=== PATIENT | female | born 1935 | race Caucasian/White ===

== ENCOUNTER 2025-04-10 21:49 | Inpatient (IN) | payer OTHER ==
[~2025-04-10] VITALS: Ht 167.6 cm; Wt 88.0 kg
--- NOTE | 2025-04-10 22:08 | ED.PDOC ---
HPI Comments 89-year-old female in the ER via EMS for chest pains. Patient has history of hypertension and dyslipidemia, for the past 3 hours, she has been experiencing left sided chest pains, heavy, nonradiating, 8/10 intensity, constant. Denies any shortness a breath. Persistence prompted check up REVIEW OF SYSTEMS: General: No fever, no chills, or fatigue HEENT: No sore throat, no earache, no congestion, no neck pain. Cardiac: (+) chest pain. No palpitations. Lungs: No shortness of breath, no cough. GI: No nausea, no vomiting, no diarrhea, no constipation, no abdominal pain : No dysuria, frequency, or urgency. No hematuria. Musculoskeletal: No joint pain , no joint swelling, no extremity edema. Skin: No rash, no itching. Neuro: No headache, no dizziness, no weakness EXAM: General: Awake, alert and oriented. No acute distress. Skin: Skin in warm, dry and intact. Appropriate color for ethnicity. HEENT: The head is normocephalic and atraumatic. Conjunctivae are clear without exudates or hemorrhage. Sclera is non-icteric. EOM are intact. No signs of nystagmus. Eyelids are normal in appearance without swelling or lesions. Oral mucosa is pink and moist Neck: The neck is supple with normal range of motion. No JVD. Cardiac: Heart rate and rhythm are normal. No murmurs, gallops, or rubs are auscultated. Respiratory: No signs of respiratory distress. Lung sounds are clear in all lobes bilaterally without rales, rhonchi, or wheezes. Abdominal: Abdomen is soft, non-tender without distention. Bowel sounds are present and normoactive in all four quadrants. Extremities: Upper and lower extremities are atraumatic in appearance without deformity or edema. Neurological: The patient is awake, alert and oriented to person, place, and time with normal speech. Speech is clear. There is no facial asymmetry. Psychiatric: Appropriate mood and affect. Good judgement and insight Chief Complaint: Chest Pain Time Seen by MD: 22:07 Primary Care Provider: UNK Reviewed Notes: [employer] Notes Allergies: Coded Allergies: NO KNOWN ALLERGIES (Unverified , 06/05/16) Home Meds Reported Medications Ketoconazole (Ketoconazole) 2 % Cre, 1 APPLIC TOP BID for UNDER BREASTS, PERIANAL AREA, #60 GRAMS 1 Refill 04/11/25 Tramadol Hcl (Tramadol Hcl) 50 Mg Tab, 50 MG PO Q6HP PRN for PAIN SCALE 7 THRU 10, MG 04/11/25 Tolterodine Tartrate (Detrol La) 2 Mg Cap, 1 CAP PO DAILY for OVERACTIVE BLADDER, #30 CAP 2 Refills 04/11/25 Meloxicam (Meloxicam) 7.5 Mg Tab, 1 TAB PO DAILY for ARTHRITIS, #30 TAB 2 Refills 04/11/25 Gabapentin (Gabapentin) 300 Mg Cap, 300 MG PO for 30 Days, MG 04/11/25 Fluoxetine Hcl (Fluoxetine Hcl) 20 Mg Cap, 20 MG PO DAILY for DEPRESSION for 30 Days, MG 04/11/25 Famotidine (Famotidine) 20 Mg Tab, 20 MG PO BID for HEART BURN for 30 Days, MG 04/11/25 Amlodipine Besylate (NORVASC TABLET) 5 Mg Tb, 1 TAB PO DAILY for HIGH BLOOD PRESSURE, #30 TAB 5 Refills 04/11/25 Atorvastatin Calcium (ATORVASTATIN CALCIUM) 20 Mg Tab, 1 TAB PO DAILY, #30 TAB 5 Refills 04/11/25 Information Source: Patient, Emergency Med Personnel Mode of Arrival: EMS Severity: Moderate Timing: Hours Duration: Intermittent Prehospital treatment: ASA, NTG, Treatment Location: Chest (L) Radiation: No Radiation Quality: Heavy Past Medical History PAST MEDICAL HISTORY: Arthritis, High Lipids, HTN Surgical History (Other): Knee surgery POINT OF CARE TECHNICIAN History: Denies all POINT OF CARE TECHNICIAN Hx Family History Family History: Reviewed,noncontributory to illness Social History Smoker: Non-Smoker, Quit Greater Than 1 Year Alcohol: Denies ETOH Use Lives In: Home EKG EKG : Pulse Rate (adult): 79 Cardiac Rhythm: NSR Hypertrophy: LAE Was a procedure done? Was a procedure done?: No CP Differential Dx Differential Diagnosis: Angina, Anxiety / Panic Attack, Hypoxia Differential Diagnosis: Angina, Chest Wall Pain, Costochondritis, Esophageal reflux/spasm, Gastritis, Myocardial Infarction, Pneumonia X-Ray, Labs, Meds, VS Vital Signs Date Time Temp Pulse Resp B/P (MAP) Pulse Ox O2 Delivery O2 Flow Rate FiO2 04/11/25 04:10 97.7 69 16 117/73 (88) 96 97.7 04/11/25 02:15 98.0 76 16 119/73 (88) 96 98.0 04/11/25 00:56 70 16 97 Room Air* 0 21 04/11/25 00:38 70 25 127/70 04/11/25 00:08 73 16 118/80 04/11/25 00:00 97.9 70 17 118/80 (93) 96 97.9 04/10/25 22:35 97.7 74 16 101/69 (80) 96 97.7 04/10/25 22:08 79 04/10/25 21:55 79 04/10/25 21:54 98.6 76 16 119/82 95 98.6 Lab Test 04/11/25 00:54 04/10/25 22:56 04/10/25 22:00 04/10/25 02:02 Range/Units Troponin I High Sensitivity 8 8 8 </=34 ng/L White Blood Count 6.8 4.4-10.8 10^3/uL Red Blood Count 3.81 L 4.0-5.20 10^6/uL Hemoglobin 12.9 12.2-16.2 g/dL Hematocrit 36.7 36.0-46.0 % Mean Corpuscular Volume 96.3 80.0-100.0 fL Mean Corpuscular Hemoglobin 33.9 H 28.0-32.0 pg Mean Corpuscular Hemoglobin Concent 35.1 32.0-36.0 g/dL Red Cell Distribution Width 12.8 11.8-14.3 % Platelet Count 158 140-450 10^3/uL Mean Platelet Volume 7.3 6.9-10.8 fL Neutrophils (%) (Auto) 62.6 37.0-80.0 % Lymphocytes (%) (Auto) 19.5 10.0-50.0 % Monocytes (%) (Auto) 12.1 H 0.0-12.0 % Eosinophils (%) (Auto) 5.3 0.0-7.0 % Basophils (%) (Auto) 0.5 0.0-2.0 % Neutrophils # (Auto) 4.3 1.6-8.6 10 ^3/uL Lymphocytes # (Auto) 1.3 0.4-5.4 10 ^3/uL Monocytes # (Auto) 0.8 0-1.3 10 ^3/uL Eosinophils # (Auto) 0.4 0-0.8 10 ^3/uL Basophils # (Auto) 0 0-0.2 10 ^3/uL Nucleated Red Blood Cells 0.1 % Platelet Estimate Adequate D-Dimer, Quantitative 1.13 H 0.0-0.49 mg/L FEU Sodium Level 138 136-145 mmol/L Potassium Level 4.3 3.5-5.1 mmol/L Chloride Level 106 98-107 mmol/L Carbon Dioxide Level 23 20-31 mmol/L Anion Gap 9 5-15 Blood Urea Nitrogen 15 9-23 mg/dL Creatinine 0.98 0.550-1.02 mg/dL Glomerular Filtration Rate Calc 56 >90 mL/min BUN/Creatinine Ratio 15.3 10.0-20.0 Serum Glucose 116 H 74-106 mg/dL Calcium Level 9.6 8.7-10.4 mg/dL B-Type Natriuretic Peptide 89.24 0-100 pg/mL Urine Color Pending Urine Clarity Pending Urine pH Pending Urine Specific [place] Pending Urine Protein Pending Urine Ketones Pending Urine Blood Pending Urine Nitrite Pending Urine Bilirubin Pending Urine Urobilinogen Pending Urine Leukocyte Esterase Pending Urine RBC Pending Urine Microscopic WBC Pending Urine Squamous Epithelial Cells Pending Urine Bacteria Pending Urine Glucose Pending Current Medications Medications (Trade) Dose Ordered Sig/Tone Route Start Time Stop Time Status Last Admin Morphine Sulfate 2 mg ONCE ONCE IV 04/10/25 22:00 04/10/25 22:03 DC 04/11/25 00:08 EXAM: XY CHEST XRAY 1 VIEW CLINICAL HISTORY: cp TECHNIQUE: Single AP view of the chest WID: COMPARISON: None FINDINGS: Lines and tubes: None Chest: The heart size and pulmonary vasculature is within normal limits. Calcified plaque projects over the aortic arch. No pleural effusion, pneumothorax, or consolidation. The osseous structures are grossly intact. Large hiatal hernia. IMPRESSION: 1. No acute cardiopulmonary abnormality. 2. Large hiatal hernia. Time of 1ST Reevaluation: 22:03 Reevaluation 1ST: Unchanged Patient Education/Counseling: Need For Follow Up Family Education/Counseling: No Family Present SEPSIS Sepsis Screen Physician Orders Electrocardigram (04/10/25 22:00) Chest Xray 1 View (04/10/25 22:00) Vital Signs Q1HR (04/10/25 22:00) Saline Lock (04/10/25 22:00) Post Doctoral Researcher (04/10/25 ) Electrocardigram (04/10/25 23:00) Electrocardigram (04/11/25 01:00) Ct Angio Chest Contrast (04/11/25 00:20) Abdomen Complete Sonogram (04/11/25 04:50) Vital Signs Date Time Temp Pulse Resp B/P (MAP) Pulse Ox O2 Delivery O2 Flow Rate FiO2 04/11/25 04:10 97.7 69 16 117/73 (88) 96 97.7 04/11/25 02:15 98.0 76 16 119/73 (88) 96 98.0 04/11/25 00:56 70 16 97 Room Air* 0 21 04/11/25 00:38 70 25 127/70 04/11/25 00:08 73 16 118/80 04/11/25 00:00 97.9 70 17 118/80 (93) 96 97.9 04/10/25 22:35 97.7 74 16 101/69 (80) 96 97.7 04/10/25 22:08 79 04/10/25 21:55 79 04/10/25 21:54 98.6 76 16 119/82 95 98.6 Laboratory Tests Test 04/10/25 22:00 White Blood Count 6.8 10^3/uL (4.4-10.8) Medications Medications Dose Ordered Sig/Tone Route Start Time Stop Time Status Last Admin Dose Admin Morphine Sulfate 2 mg ONCE ONCE IV 04/10/25 22:00 04/10/25 22:03 DC 04/11/25 00:08 Departure 1 Departure Time of Disposition: 02:43 Impression: Primary Impression: Chest pain Disposition: ADMITTED INPATIENT Condition: Stable Comments 89-year-old female with ongoing chest pain Patient admitted to hospitalist service for further treatment, evaluation and monitoring. Extensive evaluation was performed in attempt to identify or rule out: (See differential diagnosis section) The following tests were ordered, and results were reviewed by me and discussed with patient: (See diagnostic results section) The following test were independently interpreted by me: EKG Additional information was gathered from interviewing the following independent historians: EMS personnel Decision regarding hospitalization or escalation of hospital level of care: Risk and benefits of admission for further treatment of patient's condition was considered. Due to patient's current clinical condition, high risk of decline and poor outcome if discharged and need for further inpatient management and monitoring, patient will be admitted to the hospital. Discussed with patient. Critical Care Note Critical Care Time?: No Stability Stability form required: No Heart Score Heart Score: Heart Score Response (Comments) Value History Moderate Suspicious 1 EKG Normal 0 Age >65 2 Risk Factors >3 or Hx ASHD 2 Troponin Normal limit 0 Total 5 I personally scribed for JUAN PABLO ALONZO MD ([email or web address]) on 04/10/25 at 22:08. Electronically submitted by Lester Dasilva ([employer]). I personally scribed for JUAN PABLO ALONZO MD ([email or web address]) on 04/10/25 at 22:59. Electronically submitted by Lester Dasilva ([employer]). JUAN PABLO ALONZO MD Apr 10, 2025 22:08
[2025-04-10 22:25] LABS: Hematocrit 36.7 % (36.0-46.0); Hemoglobin 12.9 g/dL (12.2-16.2); Mean Corpuscular Hemoglobin 33.9 pg (28.0-32.0); Mean Corpuscular Volume 96.3 fL (80.0-100.0); Nucleated Red Blood Cells % 0.1 %
[2025-04-10 22:40] LABS: Chloride 106 mmol/L (98-107); Potassium 4.3 mmol/L (3.5-5.1); Sodium 138 mmol/L (136-145)
[2025-04-10 22:41] LABS: Anion Gap 9 (5-15); Calcium 9.6 mg/dL (8.7-10.4); Carbon Dioxide 23 mmol/L (20-31)
[2025-04-10 22:46] LABS: BUN/Creatinine Ratio 15.3 (10.0-20.0); Blood Urea Nitrogen 15 mg/dL (9-23)
--- NOTE | 2025-04-10 22:48 | DVH ---
EXAM: XY CHEST XRAY 1 VIEW CLINICAL HISTORY: cp TECHNIQUE: Single AP view of the chest WID: COMPARISON: None FINDINGS: Lines and tubes: None Chest: The heart size and pulmonary vasculature is within normal limits. Calcified plaque projects over the aortic arch. No pleural effusion, pneumothorax, or consolidation. The osseous structures are grossly intact. Large hiatal hernia. IMPRESSION: 1. No acute cardiopulmonary abnormality. 2. Large hiatal hernia.
[2025-04-10 22:50] LABS: Glucose 116 mg/dL (74-106)
[2025-04-11] VITALS (8 sets, daily range): BP systolic 104–131; BP diastolic 61–86; PULSE 67–94; RESP 16–18; TEMP 98–98.3; O2SAT 89–99
[2025-04-11] MEDS: MORPHINE SULFATE INJ 2 MG/ml SYRG IV ONE (00:08)
--- NOTE | 2025-04-11 02:34 | DVH ---
CTA Chest with intravenous contrast INDICATION: Rule out PE. Chest pain, positive D-dimer COMPARISON: None TECHNIQUE: Multidetector spiral CTA of the chest was performed of the chest with intravenous contrast . PULMONARY ANGIOGRAPHY PROTOCOL was utilized using a bolus-tracking technique centered on the main p ulmonary artery. Axial, coronal and sagittal multiplanar and MIP reformats were performed. Radiation Dose : 1. Chest: CTDI volume is 47.36 mGy. Dose-length product is 1057.63 mGy*cm The dose indicators for CT are the volume Computed Tomography (CT) Dose Index (CTDIvol) and the Dose Length Product (DLP), and are measured in units of mGy and mGy-cm, respectively. These indicators are not patient dose, but values generated from the CT scanner acquisition factors. The report includes radiation exposure data for exposures received during this examination. Findings: Pulmonary artery: No pulmonary embolism. Prominent main pulmonary artery measures 3.6 cm in diameter. Lower neck: Normal thyroid. Lungs: Moderate diffuse bilateral upper lobe ground-glass opacity and left basilar atelectasis. No ev idence of focal consolidation. No evidence of pleural effusion or pneumothorax. Heart/Vascular Structures: Normal heart size. No pericardial effusion. Atherosclerotic vascular calci fications. Lymph Nodes: No adenopathy Musculoskeletal: No acute osseous abnormality. Soft tissues: Normal. Upper abdomen: Large hiatal hernia containing segments of bowel and portions of stomach. Calcified ga llstones. Moderate ascites within the left upper quadrant. 3.8 cm benign-appearing right hepatic lobe cyst. Benign-appearing left renal cysts and mild right renal atrophy. IMPRESSION: 1. No pulmonary embolism. 2. Moderate diffuse bilateral upper lobe ground-glass opacity and left basilar atelectasis. 3. Large hiatal hernia containing segments of bowel and portions of stomach. 4. Cholelithiasis. 5. Moderate ascites within the left upper quadrant.
[2025-04-11] MEDS: IOHEXOL 350 MG/ML 100ML IJ ONE (03:39)
[2025-04-11] MEDS: IOHEXOL 300 MG/ML 100ML BOTTLE IJ ONE (03:40)
[2025-04-11] MEDS ORDERED: FAMO-12 PO (05:14)
[2025-04-11] MEDS ORDERED: ATOR20TA50 PO (05:14)
[2025-04-11] MEDS ORDERED: TRAM50TA2 PO (05:14)
[2025-04-11] MEDS ORDERED: GABA-1250 PO (05:14)
[2025-04-11] MEDS ORDERED: AML5T PO (05:14)
[2025-04-11] MEDS ORDERED: MELO7.5T7 PO (05:14)
[2025-04-11] MEDS ORDERED: FLUO-125 PO (05:14)
[2025-04-11] MEDS ORDERED: KETO2CRE4 TOP (05:14)
[2025-04-11] MEDS ORDERED: TOLT2CAP PO (05:14)
[2025-04-11] MEDS ORDERED: DOCUSATE SOD 100 MG CAP PO PRN (05:15)
[2025-04-11] MEDS ORDERED: LORazepam 0.5 MG TAB PO PRN (05:15)
[2025-04-11] MEDS ORDERED: NITROGLYCERIN 0.4 MG SL TAB SL PRN (05:15)
[2025-04-11] MEDS ORDERED: MORPHINE SULFATE INJ 2 MG/ml SYRG IV PRN (05:15)
[2025-04-11] MEDS ORDERED: FAMOTIDINE 20 MG TAB PO ONE (05:15)
[2025-04-11] MEDS: MELATONIN 5 MG TAB PO ONE (05:30)
[2025-04-11 05:45] LABS: Urine Protein, UAD Negative (Negative)
--- NOTE | 2025-04-11 06:39 | DVHHP2 ---
ZELALEM CHAPMAN TOY MECHANIC 04/11/25 0639: History of Present Illness Reason for Visit: Chest pain History of Present Illness 89-year-old female with past medical history of hypertension, hyperlipidemia, hiatal hernia, GERD presents with complaints of chest pain x1 night. Patient states she was at rest. Chest pain came on unprovoked. Pain is heavy 8/10, nonradiating. Patient is also endorsing dizziness from lying position. During the emergency department evaluation CMP is unremarkable. Troponins are negative x2. CBC is unremarkable. D-dimer is elevated 1.13. CTA of the chest negative for pulmonary embolism. Moderate diffuse bilateral upper lobe ground-glass opacities at the left base atelectasis. Large hiatal hernia containing segments of bowel and portions of stomach. Cholelithiasis. Moderate ascites within the left upper quadrant. At this time patient denies fevers, chills, shortness of breath, palpitations, nausea, vomiting, dysuria, abdominal pain history of cancer. Cardiovascular: HTN, hyperipidemia Smoke: No ALCOHOL: occassional Drugs: None Lives: with Family Review of Systems Constitutional: No: Fever, Chills, Sweats, Weakness, Malaise, Other Eyes: No: Pain, Vision change, Conjunctivae inflammation, Eyelid inflammation, Other, Redness ENT: No: Ear pain, Ear discharge, Nose pain, Nose discharge, Nose congestion, Mouth pain, Mouth swelling, Throat pain, Throat swelling, Other Respiratory: No: Cough, Dry, Shortness of breath, SOB with excertion, Wheezing, Hemoptysis, Pleuritic Pain, Sputum, Wheezing, Other Cardiovascular: Chest Pain; No: Palpitations, Orthopnea, Paroxysmal Noc. Dyspnea, Edema, Lt Headedness, Other Gastrointestinal: No: Nausea, Vomiting, Abdominal Pain, Diarrhea, Constipation, Melena, Hematochezia, Other Genitourinary: No Dysuria, No Frequency, No Incontinence, No Hematuria, No R etention, No Other Musculoskeletal: No: other, neck pain, shoulder pain, arm pain, back pain, hand pain, leg pain, foot pain Skin: No: Rash, Lesions, Jaundice, Bruising, Other Neurological: No: Weakness, Numbness, Incoordination, Change in speech, Confusion, Seizures, Other Allergies: Coded Allergies: NO KNOWN ALLERGIES (Unverified , 11/22/16) Medications Current Medications Medications Dose Ordered Sig/Tone Route Start Time Stop Time Status Last Admin Dose Admin Docusate Sodium 100 mg BIDPRN PRN PO 04/11/25 05:15 Acetaminophen 650 mg Q6HP PRN PO 04/11/25 05:15 Ondansetron HCl 4 mg Q4HP PRN IV 04/11/25 05:15 Morphine Sulfate 2 mg Q4HPRN PRN IV 04/11/25 05:15 Enoxaparin Sodium 40 mg DAILY SC 04/11/25 10:00 Nitroglycerin 0.4 mg Q5MINP PRN SL 04/11/25 05:15 Morphine Sulfate 2 mg Q30M PRN IV 04/11/25 05:15 Tramadol HCl 50 mg Q6HPRN PRN PO 04/11/25 05:15 Atorvastatin Calcium 20 mg DAILY PO 04/11/25 10:00 Amlodipine Besylate 2.5 mg DAILY PO 04/11/25 10:00 Pantoprazole Sodium 40 mg DAILY IV 04/11/25 10:00 Fluoxetine HCl 40 mg QPM PO 04/11/25 18:00 Lorazepam 0.25 mg BIDP PRN PO 04/11/25 05:15 Sucralfate 1 gm BID PO 04/11/25 10:00 Exam Vital Signs Vital Signs Date Time Temp Pulse Resp B/P (MAP) Pulse Ox O2 Delivery O2 Flow Rate FiO2 04/11/25 04:10 97.7 69 16 117/73 (88) 96 97.7 04/11/25 00:56 Room Air* 0 21 General Appearance: Alert, Oriented X3, Cooperative, mild distress HEENT: Atraumatic, PERRLA, EOMI Respiratory: Clear to auscultation, Normal air movement Cardiovascular: Regular rate, Normal S1, Normal S2 Abdominal: Normal bowel sounds, Soft, No tenderness Extremities: No clubbing, Other (trace edema) Skin: No rashes Neuro: Normal speech, Strength at 5/5 X4 ext Psych/Mental Status: Mental status NL, Mood NL Labs/Xrays Labs Test 04/11/25 00:54 04/10/25 22:00 04/10/25 02:02 Range/Units Troponin I High Sensitivity 8 </=34 ng/L White Blood Count 6.8 4.4-10.8 10^3/uL Red Blood Count 3.81 L 4.0-5.20 10^6/uL Hemoglobin 12.9 12.2-16.2 g/dL Hematocrit 36.7 36.0-46.0 % Mean Corpuscular Volume 96.3 80.0-100.0 fL Mean Corpuscular Hemoglobin 33.9 H 28.0-32.0 pg Mean Corpuscular Hemoglobin Concent 35.1 32.0-36.0 g/dL Red Cell Distribution Width 12.8 11.8-14.3 % Platelet Count 158 140-450 10^3/uL Mean Platelet Volume 7.3 6.9-10.8 fL Neutrophils (%) (Auto) 62.6 37.0-80.0 % Lymphocytes (%) (Auto) 19.5 10.0-50.0 % Monocytes (%) (Auto) 12.1 H 0.0-12.0 % Eosinophils (%) (Auto) 5.3 0.0-7.0 % Basophils (%) (Auto) 0.5 0.0-2.0 % Neutrophils # (Auto) 4.3 1.6-8.6 10 ^3/uL Lymphocytes # (Auto) 1.3 0.4-5.4 10 ^3/uL Monocytes # (Auto) 0.8 0-1.3 10 ^3/uL Eosinophils # (Auto) 0.4 0-0.8 10 ^3/uL Basophils # (Auto) 0 0-0.2 10 ^3/uL Nucleated Red Blood Cells 0.1 % Platelet Estimate Adequate D-Dimer, Quantitative 1.13 H 0.0-0.49 mg/L FEU Sodium Level 138 136-145 mmol/L Potassium Level 4.3 3.5-5.1 mmol/L Chloride Level 106 98-107 mmol/L Carbon Dioxide Level 23 20-31 mmol/L Anion Gap 9 5-15 Blood Urea Nitrogen 15 9-23 mg/dL Creatinine 0.98 0.550-1.02 mg/dL Glomerular Filtration Rate Calc 56 >90 mL/min BUN/Creatinine Ratio 15.3 10.0-20.0 Serum Glucose 116 H 74-106 mg/dL Calcium Level 9.6 8.7-10.4 mg/dL B-Type Natriuretic Peptide 89.24 0-100 pg/mL Urine Color Yellow Yellow Urine Clarity Clear Clear Urine pH 5.5 5.0-9.0 Urine Specific [place] 1.040 H 1.001-1.035 Urine Protein Negative Negative Urine Ketones Negative Negative Urine Blood Negative Negative /uL Urine Nitrite Negative Negative Urine Bilirubin Negative Negative Urine Urobilinogen Normal Negative mg/dL Urine Leukocyte Esterase Negative Negative /uL Urine RBC 1 0 - 4 /hpf Urine Microscopic WBC 1 0-5 /HPF Urine Squamous Epithelial Cells Few <5 /hpf Urine Bacteria None seen None Seen /hpf Urine Glucose Normal Normal mg/dL SEPSIS Sepsis Screen Date sepsis recognized/suspect: Apr 10, 2025 Time Sepsis recognized/suspect: 2153 Recent Procedure: No On Antibiotic Therapy: No Respiratory Rate >20: No Heart Rate >90: No Temp<36 C (96.8 F) or >38.3 C: No SBP <90 or MAP <65 mmHG: No New Acute Mental Status Change: No Is the patient on CPAP, BIPAP,: No Physician Orders Ct Angio Chest Contrast (04/11/25 00:20) Abdomen Complete Sonogram (04/11/25 04:50) Admit (04/11/25 05:06) Code Status (04/11/25 05:06) Vital Signs .PER UNIT PROTOCOL (04/11/25 05:06) Review Orders With Adm.Md (04/11/25 05:06) Encourage Activity As Tolerate (04/11/25 05:06) Oxygen By Face Mask (04/11/25 05:06) Docusate Sodium Capsule (Colace Capsule) (04/11/25 05:15) Acetaminophen Tablet (Tylenol Tablet) (04/11/25 05:15) Notify Md Of Changes From Base (04/11/25 05:06) Advance Directive (04/11/25 05:06) Echo 2d Mode Cardiac Dop (04/11/25 05:06) Basic Metabolic Panel (04/12/25 05:00) Basic Metabolic Panel (04/13/25 05:00) Basic Metabolic Panel (04/14/25 05:00) Complete Blood Count (04/12/25 05:00) Complete Blood Count (04/13/25 05:00) Complete Blood Count (04/14/25 05:00) Patient Condition (04/11/25 05:06) Allergies (04/11/25 05:06) Ondansetron Hcl (Zofran) (04/11/25 05:15) Morphine Sulfate Injection (04/11/25 05:15) Enoxaparin Sodium (Lovenox) (04/11/25 10:00) Sequential Compression Device (04/11/25 ) Nitroglycerin Sublingual (Ntrostat Subli (04/11/25 05:15) Morphine Sulfate Injection (04/11/25 05:15) Stat Ekg For Chest Pain (04/11/25 05:06) Notify Md Of Changes From Base (04/11/25 05:06) Kettle Room Helper For 24 Hours (04/11/25 05:06) Emergency Dysrhythmia Protocol (04/11/25 05:06) Rhythm Strips Once Every Shift (04/11/25 05:06) Oxygen By Nasal Cannula (04/11/25 05:06) * Cardiology Consult (04/11/25 05:06) Troponin-I Hs (04/11/25 06:00) Troponin-I Hs (04/11/25 14:00) Tramadol Hcl (Ultram) (04/11/25 05:15) Atorvastatin (Lipitor) (04/11/25 10:00) Amlodipine Tablet (Norvasc Tablet) (04/11/25 10:00) Pantoprazole (Protonix) (04/11/25 10:00) Fluoxetine Capsule (Prozac Capsule) (04/11/25 18:00) Orthostatic Vital Signs (04/11/25 05:06) Orthostatic Vital Signs (04/12/25 05:06) Orthostatic Vital Signs (04/13/25 05:06) Orthostatic Vital Signs (04/14/25 05:06) Pt Request For Service (04/11/25 05:06) Lorazepam Tablet (Ativan Tablet) (04/11/25 05:15) Sucralfate Tab (Carafate Tab) (04/11/25 10:00) Regular Diet (04/11/25 Breakfast) Vital Signs Date Time Temp Pulse Resp B/P (MAP) Pulse Ox O2 Delivery O2 Flow Rate FiO2 04/11/25 04:10 97.7 69 16 117/73 (88) 96 97.7 04/11/25 02:15 98.0 76 16 119/73 (88) 96 98.0 04/11/25 00:56 70 16 97 Room Air* 0 21 04/11/25 00:38 70 25 127/70 04/11/25 00:08 73 16 118/80 04/11/25 00:00 97.9 70 17 118/80 (93) 96 97.9 04/10/25 22:35 97.7 74 16 101/69 (80) 96 97.7 Laboratory Tests Test 04/10/25 22:00 White Blood Count 6.8 10^3/uL (4.4-10.8) Medications Medications Dose Ordered Sig/Tone Route Start Time Stop Time Status Last Admin Dose Admin Morphine Sulfate 2 mg ONCE ONCE IV 04/10/25 22:00 04/10/25 22:03 DC 04/11/25 00:08 2 MG Assessment/Plan Assessment/Plan Chest pain Hypertension Elevated d dimer Left upper quadrant ascites Hx hiatal hernia Plan Admit telemetry Cardiology consult. Echocardiogram. Continue home medication's. Orthostatic vital signs. Abdominal ultrasound to confirm Ascites. Paracentesis. CTA chest negative for PE. Vascular US for dvt. Protonix. Carafate. for GERD from hiatal hernia. Physical therapy evaluation. GI ppx protonix / dvt ppx lovenox Plan discussed with: Patient, Spouse, Daughter My Orders Orders - ZELALEM CHAPMAN NP Procedure Category Date Status Time Abdomen Complete US 04/11/25 Logged Sonogram 04:50 Admit ADMIT 04/11/25 Transmitted 05:06 Code Status CODE 04/11/25 Transmitted 05:06 Vital Signs [facility] 04/11/25 In Process 05:06 Review Orders With [facility] 04/11/25 In Process Adm. 05:06 Encourage Activity As [facility]ITY 04/11/25 In Process Tolerate 05:06 Oxygen By Face Mask RT 04/11/25 Transmitted 05:06 Docusate Sodium PHA 04/11/25 In Process Capsule (Colace 05:15 Acetaminophen Tablet PHA 04/11/25 In Process (Tylenol Tablet) 05:15 Notify Of Changes [facility] 04/11/25 In Process From Base 05:06 Advance Directive [facility] 04/11/25 In Process 05:06 Echo 2d Mode Cardiac US 04/11/25 Logged DOP 05:06 Basic Metabolic Panel LAB 04/12/25 Verified 05:00 Basic Metabolic Panel LAB 04/13/25 Verified 05:00 Basic Metabolic Panel LAB 04/14/25 Verified 05:00 Complete Blood Count LAB 04/12/25 Verified 05:00 Complete Blood Count LAB 04/13/25 Verified 05:00 Complete Blood Count LAB 04/14/25 Verified 05:00 Patient Condition ORDERS 04/11/25 Transmitted 05:06 Allergies CHARITY 04/11/25 In Process 05:06 Ondansetron Hcl PHA 04/11/25 In Process (Zofran) 05:15 Morphine Sulfate PHA 04/11/25 In Process Injection 05:15 Enoxaparin Sodium PHA 04/11/25 In Process (Lovenox) 10:00 Sequential [facility]ITY 04/11/25 In Process Compression Device Nitroglycerin PHA 04/11/25 In Process Sublingual (Ntrostat 05:15 Morphine Sulfate PHA 04/11/25 In Process Injection 05:15 Stat Ekg For Chest [facility] 04/11/25 In Process Pain 05:06 Notify Of Changes [facility] 04/11/25 In Process From Base 05:06 Kettle Room Helper For [facility] 04/11/25 In Process 24 Hours 05:06 Emergency Dysrhythmia [facility] 04/11/25 In Process Protocol 05:06 Rhythm Strips Once [facility] 04/11/25 In Process Every Shift 05:06 Oxygen By Nasal RT 04/11/25 Transmitted Cannula 05:06 * Cardiology Consult CONS 04/11/25 Transmitted 05:06 Troponin-I Hs LAB 04/11/25 Logged 06:00 Troponin-I Hs LAB 04/11/25 Logged 14:00 Tramadol Hcl (Ultram) PHA 04/11/25 In Process 05:15 Atorvastatin (Lipitor) PHA 04/11/25 In Process 10:00 Amlodipine Tablet PHA 04/11/25 In Process (Norvasc Tablet) 10:00 Pantoprazole PHA 04/11/25 In Process (Protonix) 10:00 Fluoxetine Capsule PHA 04/11/25 In Process (Prozac Capsule) 18:00 Orthostatic Vital ORDERS 04/11/25 Transmitted Signs 05:06 Orthostatic Vital ORDERS 04/12/25 Transmitted Signs 05:06 Orthostatic Vital ORDERS 04/13/25 Transmitted Signs 05:06 Orthostatic Vital ORDERS 04/14/25 Transmitted Signs 05:06 Pt Request For Service PT 04/11/25 Logged 05:06 Lorazepam Tablet PHA 04/11/25 In Process (Ativan Tablet) 05:15 Sucralfate Tab PHA 04/11/25 In Process (Carafate Tab) 10:00 Regular Diet DIET 04/11/25 Transmitted Breakfast Date of Service: Apr 11, 2025 Billing Provider: JALEN HARVEY MD Common Visit Codes: NOT BILLABLE JALEN HARVEY MD 04/11/25 1621: Review of Systems Allergies: Coded Allergies: NO KNOWN ALLERGIES (Unverified , 06/05/16) Additional Comments Additional Comments Additional Comments 89-year-old female with known history of hypertension, osteoarthritis, suspected COPD, with a previous history of tobacco use disorder/30 pack-year history quit 37 years ago presented to the hospital with a left-sided chest pain which was sharp without any radiation found to have 1. Chest pain rule out DE 2. Acute hypoxic respiratory failure requiring 2 L of oxygen by continuous nasal cannula 3. Moderate diffuse bilateral upper lobe ground-glass opacity and left basilar atelectasis 4. Large hiatus hernia containing segments of small bowel and portion of stomach 5. GERD 6. Hypertension 7. Osteoarthritis 8. Previous history of tobacco use disorder -check troponins q.8 hours x3, 2D echo, cardiology consultation, pulmonary consultation, we will assess for home oxygen requirement. -continue Protonix/Pepcid, GI consultation for left upper quadrant ascites as well as large hiatus hernia. -plan of care discussed with the patient as well as patient's son at bedside they understand verbalized the understanding and agreeable to plan. ZELALEM CHAPMAN NP Apr 11, 2025 06:39 JALEN HARVEY MD Apr 11, 2025 16:21
--- NOTE | 2025-04-11 07:08 | ECG ---
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
--- NOTE | 2025-04-11 07:08 | ECG ---
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
--- NOTE | 2025-04-11 07:09 | ECG ---
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
--- NOTE | 2025-04-11 08:04 | DVH ---
Bilateral lower extremity venous duplex Clinical History: elevated d dimer Comparison: None Findings: Duplex Doppler evaluation of the deep venous systems of both lower extremities from the common femora l veins to the popliteal veins including color Doppler and spectral/pulsed waveform analysis was perf ormed. RIGHT SIDE: The common femoral vein demonstrates appropriate compressibility and waveform variability. There is compressibility/patency of the great saphenous vein at the proximal thigh. The femoral vein demonstrates appropriate compressibility and waveform variability. The deep femoral vein demonstrates appropriate compressibility and waveform variability. The popliteal vein demonstrates appropriate compressibility and waveform variability. There is normal compressibility at the tibioperoneal trunk. LEFT SIDE: The common femoral vein demonstrates appropriate compressibility and waveform variability. There is compressibility/patency of the great saphenous vein at the proximal thigh. The femoral vein demonstrates appropriate compressibility and waveform variability. The deep femoral vein demonstrates appropriate compressibility and waveform variability. The popliteal vein demonstrates appropriate compressibility and waveform variability. There is normal compressibility at the tibioperoneal trunk. IMPRESSION: No right or left femoropopliteal venous thrombosis. If clinical concern/symptoms persist or worsen, short-interval follow-up study is suggested. END IMPRESSION:
--- NOTE | 2025-04-11 08:11 | DVH ---
Ultrasound abdomen limited INDICATION: left quadrant ascites Technique: 2-D real-time ultrasound was performed with axial and sagittal images submitted for evalu ation. FINDINGS/IMPRESSION: No ascites seen in all 4 quadrants of the abdomen. Incidental note made of a cy st in the right lobe of the liver measuring 2.4 x 2.9 cm
[2025-04-11] MEDS: PANTOPRAZOLE 40 MG/10 ML VIAL INJ IV SCH (10:20)
[2025-04-11] MEDS: ONDANSETRON HCL 4 MG/2 ML VIAL IV PRN (10:20)
[2025-04-11] MEDS: SUCRALFATE 1 GM TAB PO SCH (10:21)
[2025-04-11] MEDS: ATORVASTATIN 20 MG TAB PO SCH (10:21)
[2025-04-11] MEDS: ENOXAPARIN SOD 40 MG/0.4 ML SYRINGE SC SCH (10:22)
[2025-04-11] MEDS: MORPHINE SULFATE INJ 2 MG/ml SYRG IV PRN (10:22)
--- NOTE | 2025-04-11 13:59 | DVHINCON2 ---
Date Seen: Apr 11, 2025 Referring Physician REBECCA Alberto Reason for Consultation Chest pain History of Present Illness An 89-year-old female with a history of hypertension, hyperlipidemia, dementia, and arthritis presents to the ED via EMS with complaint of chest pain. She reports that the pain was sharp in nature, began while at rest last night, lasted for a few minutes, and was relieved after morphine was administered by EMS. At the time of evaluation, she denies chest pain, diaphoresis, palpitations, or shortness of breath. A 12 lead ECG demonstrated sinus rhythm without acute ischemic changes, and serial troponins have been negative. Past Medical History As stated in HPI Past Surgical History Right knee replacement Family History: Patient reports no known family medical history. Family History Reviewed, non-contributory to the management of this case. Social History The patient lives at home, denies smoking, alcohol or illicit drugs abuse. Allergies: Coded Allergies: NO KNOWN ALLERGIES (Unverified , 06/05/16) Home Meds Reported Medications Ketoconazole (Ketoconazole) 2 % Cre, 1 APPLIC TOP BID for UNDER BREASTS, PERIANAL AREA, #60 GRAMS 1 Refill 04/11/25 Tramadol Hcl (Tramadol Hcl) 50 Mg Tab, 50 MG PO Q6HP PRN for PAIN SCALE 7 THRU 10, MG 04/11/25 Tolterodine Tartrate (Detrol La) 2 Mg Cap, 1 CAP PO DAILY for OVERACTIVE BLADDER, #30 CAP 2 Refills 04/11/25 Meloxicam (Meloxicam) 7.5 Mg Tab, 1 TAB PO DAILY for ARTHRITIS, #30 TAB 2 Refills 04/11/25 Gabapentin (Gabapentin) 300 Mg Cap, 300 MG PO for 30 Days, MG 04/11/25 Fluoxetine Hcl (Fluoxetine Hcl) 20 Mg Cap, 20 MG PO DAILY for DEPRESSION for 30 Days, MG 04/11/25 Famotidine (Famotidine) 20 Mg Tab, 20 MG PO BID for HEART BURN for 30 Days, MG 04/11/25 Amlodipine Besylate (NORVASC TABLET) 5 Mg Tb, 1 TAB PO DAILY for HIGH BLOOD PRESSURE, #30 TAB 5 Refills 04/11/25 Atorvastatin Calcium (ATORVASTATIN CALCIUM) 20 Mg Tab, 1 TAB PO DAILY, #30 TAB 5 Refills 04/11/25 Current Medications Current Medications Medications (Trade) Dose Ordered Sig/Tone Route PRN Reason Start Time Stop Time Status Last Admin Docusate Sodium (Colace Capsule) 100 mg BIDPRN PRN PO FOR CONSTIPATION 04/11/25 05:15 Acetaminophen (Tylenol Tablet) 650 mg Q6HP PRN PO PAIN SCALE 1-3 OR TEMP>100.4 04/11/25 05:15 Ondansetron HCl (Zofran) 4 mg Q4HP PRN IV NAUSEA / VOMITING 04/11/25 05:15 04/11/25 10:20 Morphine Sulfate 2 mg Q4HPRN PRN IV SEVERE PAIN (7-10 PAIN SCALE) 04/11/25 05:15 Enoxaparin Sodium (Lovenox) 40 mg DAILY SC 04/11/25 10:00 04/11/25 10:22 Nitroglycerin (Ntrostat Sublingual) 0.4 mg Q5MINP PRN SL FOR CHEST PAIN 04/11/25 05:15 Morphine Sulfate 2 mg Q30M PRN IV FOR CHEST PAIN 04/11/25 05:15 04/11/25 10:22 Tramadol HCl (Ultram) 50 mg Q6HPRN PRN PO moderate pain 04/11/25 05:15 Atorvastatin Calcium (Lipitor) 20 mg DAILY PO 04/11/25 10:00 04/11/25 10:21 Amlodipine Besylate (Norvasc Tablet) 2.5 mg DAILY PO 04/11/25 10:00 04/11/25 10:21 Pantoprazole Sodium (Protonix) 40 mg DAILY IV 04/11/25 10:00 04/11/25 10:20 Fluoxetine HCl (PROzac CAPSULE) 40 mg QPM PO 04/11/25 18:00 Lorazepam (Ativan Tablet) 0.25 mg BIDP PRN PO Anxiety 04/11/25 05:15 Sucralfate (Carafate Tab) 1 gm BID PO 04/11/25 10:00 04/11/25 10:21 Review of Systems Constitutional: No symptom reported Ears, Nose, & Throat: No symptom reported Eyes: No symptom reported Neurological: No symptoms reported Pulmonary/Respiratory: No symptom reported Cardiovascular: Chest pain Gastrointestinal: No symptom reported Genitourinary: No symptom reported Musculoskeletal: No symptom reported Skin: No symptom reported Psychiatric: No symptom reported Endocrine: No symptom reported Hemotologic/Lymphatic: No symptom reported Vital Signs Vital Signs Date Time Temp Pulse Resp B/P (MAP) Pulse Ox O2 Delivery O2 Flow Rate FiO2 04/11/25 12:00 68 04/11/25 12:00 15 110/68 (82) 95 04/11/25 08:00 Nasal Cannula* 3 32 04/11/25 08:00 97.8 97.8 Physical Exam INITIAL VITAL SIGNS: Reviewed by me GENERAL: Alert and interactive. No acute distress. HEAD: Head is normocephalic and atraumatic. EYES: EOMI, PERRL. No scleral icterus. No conjunctival injection. ENT: Moist mucous membranes. NECK: Supple, No masses, Full range of motion. RESPIRATORY: No tachypnea. Clear breath sounds bilaterally. No wheezing, rales, rhonchi. CV: Regular rate and rhythm. No murmurs, no edema GI/: Active bowel sounds, soft, nondistended, nontender. No guarding. No rebound. No masses. No CVA tenderness. INTEGUMENTARY: Warm and dry. No obvious rashes. NEUROLOGIC: Alert and oriented. Face is symmetric. Speech is normal. Moves all extremities equally. Labs/Diagnostic Data Labs Test 04/11/25 12:29 04/10/25 22:00 04/10/25 02:02 Range/Units Troponin I High Sensitivity 8 </=34 ng/L White Blood Count 6.8 4.4-10.8 10^3/uL Red Blood Count 3.81 L 4.0-5.20 10^6/uL Hemoglobin 12.9 12.2-16.2 g/dL Hematocrit 36.7 36.0-46.0 % Mean Corpuscular Volume 96.3 80.0-100.0 fL Mean Corpuscular Hemoglobin 33.9 H 28.0-32.0 pg Mean Corpuscular Hemoglobin Concent 35.1 32.0-36.0 g/dL Red Cell Distribution Width 12.8 11.8-14.3 % Platelet Count 158 140-450 10^3/uL Mean Platelet Volume 7.3 6.9-10.8 fL Neutrophils (%) (Auto) 62.6 37.0-80.0 % Lymphocytes (%) (Auto) 19.5 10.0-50.0 % Monocytes (%) (Auto) 12.1 H 0.0-12.0 % Eosinophils (%) (Auto) 5.3 0.0-7.0 % Basophils (%) (Auto) 0.5 0.0-2.0 % Neutrophils # (Auto) 4.3 1.6-8.6 10 ^3/uL Lymphocytes # (Auto) 1.3 0.4-5.4 10 ^3/uL Monocytes # (Auto) 0.8 0-1.3 10 ^3/uL Eosinophils # (Auto) 0.4 0-0.8 10 ^3/uL Basophils # (Auto) 0 0-0.2 10 ^3/uL Nucleated Red Blood Cells 0.1 % Platelet Estimate Adequate D-Dimer, Quantitative 1.13 H 0.0-0.49 mg/L FEU Sodium Level 138 136-145 mmol/L Potassium Level 4.3 3.5-5.1 mmol/L Chloride Level 106 98-107 mmol/L Carbon Dioxide Level 23 20-31 mmol/L Anion Gap 9 5-15 Blood Urea Nitrogen 15 9-23 mg/dL Creatinine 0.98 0.550-1.02 mg/dL Glomerular Filtration Rate Calc 56 >90 mL/min BUN/Creatinine Ratio 15.3 10.0-20.0 Serum Glucose 116 H 74-106 mg/dL Calcium Level 9.6 8.7-10.4 mg/dL B-Type Natriuretic Peptide 89.24 0-100 pg/mL Urine Color Yellow Yellow Urine Clarity Clear Clear Urine pH 5.5 5.0-9.0 Urine Specific [place] 1.040 H 1.001-1.035 Urine Protein Negative Negative Urine Ketones Negative Negative Urine Blood Negative Negative /uL Urine Nitrite Negative Negative Urine Bilirubin Negative Negative Urine Urobilinogen Normal Negative mg/dL Urine Leukocyte Esterase Negative Negative /uL Urine RBC 1 0 - 4 /hpf Urine Microscopic WBC 1 0-5 /HPF Urine Squamous Epithelial Cells Few <5 /hpf Urine Bacteria None seen None Seen /hpf Urine Glucose Normal Normal mg/dL PROCEDURE(s): CXR1 - CHEST XRAY 1 VIEW REASON: cp ORDER NUMBER(s): [id number], ACCESSION NUMBER(s): [id number] EXAM: XY CHEST XRAY 1 VIEW CLINICAL HISTORY: cp TECHNIQUE: Single AP view of the chest WID: COMPARISON: None FINDINGS: Lines and tubes: None Chest: The heart size and pulmonary vasculature is within normal limits. Calcified samuel que projects over the aortic arch. No pleural effusion, pneumothorax, or consolidation. The osseous structures are grossly intact. Large hiatal hernia. IMPRESSION: 1. No acute cardiopulmonary abnormality. 2. Large hiatal hernia. Assessment Chest pain, likely noncardiac, possible from large hiatal hernia Hypertension Hyperlipidemia Obesity Plan/Recommendation (Dr. Mcfarlane ): * Echocardiogram to evaluate cardiac function and structural disease * Medical management at this time, no acute intervention indicated. * If echocardiogram is normal, patient is cleared from cardiac standpoint. * Outpatient cardiology follow-up for ongoing management of risk factors and further evaluation as needed * Continue treatment of hypertension and hyperlipidemia per primary team * Educate patient on return precaution such as such chest pain dyspnea or syncope This medical document was created using an electronic medical record system with voice recognition software and computerized dictation system. Although this document has been carefully reviewed, there might still be some phonetic and typographical errors. Occasional wrong-word or ``sound-alike substitutions may have occurred due to the inherent limitations of voice recognition software. These areas are purely typographical due to imperfections of the software programs and do not reflect any compromise in the patient's medical care. Please read the chart carefully and recognize, using context, where these substitutions have occurred. Plan discussed with: Patient Plan discussed with: Patient NYHA Physical activity limitations: NA Date of Service: Apr 11, 2025 Billing Provider: PADILLA MCFARLANE MD Cardiology Common Codes: NOT BILLABLE Cardiology Consultation Codes: 88591-[id number] CONSULT <45MIN SOREN KUHN [employer] Apr 11, 2025 13:59
[2025-04-11 15:10] LABS: Triglycerides 88 mg/dL (< 150)
[2025-04-11 15:12] LABS: HDL Cholesterol 41 mg/dL (40-59)
[2025-04-11 15:13] LABS: Cholesterol 123 mg/dL (< 200)
[2025-04-11] MEDS: ACETAMINOPHEN 325 MG TAB PO PRN (17:33)
[2025-04-11] MEDS: ALBUTEROL SULF 2.5 MG/0.5ML(0.5%) NEB SOLN NEB ONE (20:12)
[2025-04-11] MEDS: IPRATROPIUM BROM 0.5 MG/2.5ML INH SOL NEB ONE (20:12)
--- NOTE | 2025-04-11 23:24 | DVHINCON2 ---
Date Seen: Apr 11, 2025 Referring Physician REBECCA Alberto Reason for Consultation Acute hypoxic respiratory failure History of Present Illness An 89-year-old female with past medical history of hypertension, hyperlipidemia, hiatal hernia, and GERD who presented to ED on 04/10/25 with complaints of chest pain x1 night. Patient states she was at rest, and chest pain onset was unprovoked. Pain is heavy, 8/10, nonradiating. Patient is also endorsing dizziness from lying position. Patient denied fevers, chills, palpitations, N/V/D or other complaints. During the emergency department evaluation, CMP is unremarkable. Troponins are negative x2. CBC is unremarkable. D-dimer is elevated 1.13. CTA of the chest negative for pulmonary embolism. Moderate diffuse bilateral upper lobe ground-glass opacities at the left base atelectasis. Large hiatal hernia containing segments of bowel and portions of stomach. Cholelithiasis. Moderate ascites within the left upper quadrant. Patient was admitted for further care. Pulmonary consultation is requested for evaluation and management of acute hypoxic respiratory failure. Review of Systems: 14-point review of systems negative unless otherwise noted above. Past Medical History: hypertension, hyperlipidemia, hiatal hernia, and GERD Past Surgical History: None Medications: Reviewed. Allergies: No known drug allergies. Family History: No family history of premature CAD. No family history of lung disorders. Social History: Nonsmoker. Occasional alcohol use. No illicit drug use. Family History: Patient reports no known family medical history. Allergies: Coded Allergies: NO KNOWN ALLERGIES (Unverified , 06/05/16) Home Meds Active Scripts Amoxicillin & Pot Clavulanate (AUGMENTIN TABLET) 875 Mg Tb, 875 MG PO BID for 10 Days, #20 TAB Prov:JALEN HARVEY MD 04/12/25 Sucralfate (Sucralfate) 1 Gm Tab, 1 GM PO BID for 30 Days, #60 TAB Prov:JALEN HARVEY MD 04/12/25 Tramadol Hcl (Tramadol Hcl) 50 Mg Tab, 50 MG PO Q8HP PRN for PAIN SCALE 7 THRU 10, #20 MG Prov:JALEN HARVEY MD 04/12/25 Reported Medications Ketoconazole (Ketoconazole) 2 % Cre, 1 APPLIC TOP BID for UNDER BREASTS, PERIANAL AREA, #60 GRAMS 1 Refill 04/11/25 Tolterodine Tartrate (Detrol La) 2 Mg Cap, 1 CAP PO DAILY for OVERACTIVE BLADDER, #30 CAP 2 Refills 04/11/25 Gabapentin (Gabapentin) 300 Mg Cap, 300 MG PO for 30 Days, MG 04/11/25 Fluoxetine Hcl (Fluoxetine Hcl) 20 Mg Cap, 20 MG PO DAILY for DEPRESSION for 30 Days, MG 04/11/25 Famotidine (Famotidine) 20 Mg Tab, 20 MG PO BID for HEART BURN for 30 Days, MG 04/11/25 Amlodipine Besylate (NORVASC TABLET) 5 Mg Tb, 1 TAB PO DAILY for HIGH BLOOD PRESSURE, #30 TAB 5 Refills 04/11/25 Atorvastatin Calcium (ATORVASTATIN CALCIUM) 20 Mg Tab, 1 TAB PO DAILY, #30 TAB 5 Refills 04/11/25 Discontinued Reported Medications Meloxicam (Meloxicam) 7.5 Mg Tab, 1 TAB PO DAILY for ARTHRITIS, #30 TAB 2 Refills 04/11/25 Current Medications Current Medications Medications (Trade) Dose Ordered Sig/Tone Route PRN Reason Start Time Stop Time Status Last Admin Docusate Sodium (Colace Capsule) 100 mg BIDPRN PRN PO FOR CONSTIPATION 04/11/25 05:15 Acetaminophen (Tylenol Tablet) 650 mg Q6HP PRN PO PAIN SCALE 1-3 OR TEMP>100.4 04/11/25 05:15 04/11/25 17:33 Ondansetron HCl (Zofran) 4 mg Q4HP PRN IV NAUSEA / VOMITING 04/11/25 05:15 04/11/25 10:20 Morphine Sulfate 2 mg Q4HPRN PRN IV SEVERE PAIN (7-10 PAIN SCALE) 04/11/25 05:15 Enoxaparin Sodium (Lovenox) 40 mg DAILY SC 04/11/25 10:00 04/11/25 10:22 Nitroglycerin (Ntrostat Sublingual) 0.4 mg Q5MINP PRN SL FOR CHEST PAIN 04/11/25 05:15 Morphine Sulfate 2 mg Q30M PRN IV FOR CHEST PAIN 04/11/25 05:15 04/11/25 10:22 Tramadol HCl (Ultram) 50 mg Q6HPRN PRN PO moderate pain 04/11/25 05:15 Atorvastatin Calcium (Lipitor) 20 mg DAILY PO 04/11/25 10:00 04/11/25 10:21 Amlodipine Besylate (Norvasc Tablet) 2.5 mg DAILY PO 04/11/25 10:00 04/11/25 10:21 Pantoprazole Sodium (Protonix) 40 mg DAILY IV 04/11/25 10:00 04/11/25 10:20 Fluoxetine HCl (PROzac CAPSULE) 40 mg QPM PO 04/11/25 18:00 04/11/25 17:37 Lorazepam (Ativan Tablet) 0.25 mg BIDP PRN PO Anxiety 04/11/25 05:15 Sucralfate (Carafate Tab) 1 gm BID PO 04/11/25 10:00 04/11/25 22:03 Vital Signs Vital Signs Date Time Temp Pulse Resp B/P (MAP) Pulse Ox O2 Delivery O2 Flow Rate FiO2 04/11/25 21:00 98.0 78 16 111/70 (84) 89 98.0 04/11/25 20:12 Room Air 0.0 04/11/25 20:12 21 Physical Exam Gen.: Patient lying in bed in no apparent distress. On supplemental oxygen. Head: Normocephalic, atraumatic. Eyes: EOMI/PERRLA. Ears: Normal hearing. Normal anatomy. Neck/trachea: Trachea midline, supple. Nose: Normal external anatomy. Mouth: Moist mucous membranes. Chest: Decreased air entry bilaterally. No wheezing or rhonchi. Cardiovascular: Positive S1, positive S2. Regular rate and rhythm. Abdomen: Positive bowel sounds in all 4 quadrants. Soft, non-tender, non- distended. : Deferred. Rectal: Deferred. Skin: Warm, dry. Intact. Extremities: 2+ radial pulses bilaterally. No lower extremity edema. Neuro: Awake, alert, oriented x3. No gross motor or sensory deficits. Cranial nerves II through XII intact. Gait not assessed. Labs/Diagnostic Data Labs Test 04/11/25 12:29 04/11/25 07:00 04/10/25 22:00 04/10/25 02:02 Range/Units Troponin I High Sensitivity 8 </=34 ng/L Triglycerides Level 88 < 150 mg/dL Cholesterol Level 123 < 200 mg/dL LDL Cholesterol 70 < 100 mg/dL HDL Cholesterol 41 40-59 mg/dL Thyroid Stimulating Hormone (TSH) 1.02 0.55-4.78 uIU/mL White Blood Count 6.8 4.4-10.8 10^3/uL Red Blood Count 3.81 L 4.0-5.20 10^6/uL Hemoglobin 12.9 12.2-16.2 g/dL Hematocrit 36.7 36.0-46.0 % Mean Corpuscular Volume 96.3 80.0-100.0 fL Mean Corpuscular Hemoglobin 33.9 H 28.0-32.0 pg Mean Corpuscular Hemoglobin Concent 35.1 32.0-36.0 g/dL Red Cell Distribution Width 12.8 11.8-14.3 % Platelet Count 158 140-450 10^3/uL Mean Platelet Volume 7.3 6.9-10.8 fL Neutrophils (%) (Auto) 62.6 37.0-80.0 % Lymphocytes (%) (Auto) 19.5 10.0-50.0 % Monocytes (%) (Auto) 12.1 H 0.0-12.0 % Eosinophils (%) (Auto) 5.3 0.0-7.0 % Basophils (%) (Auto) 0.5 0.0-2.0 % Neutrophils # (Auto) 4.3 1.6-8.6 10 ^3/uL Lymphocytes # (Auto) 1.3 0.4-5.4 10 ^3/uL Monocytes # (Auto) 0.8 0-1.3 10 ^3/uL Eosinophils # (Auto) 0.4 0-0.8 10 ^3/uL Basophils # (Auto) 0 0-0.2 10 ^3/uL Nucleated Red Blood Cells 0.1 % Platelet Estimate Adequate D-Dimer, Quantitative 1.13 H 0.0-0.49 mg/L FEU Sodium Level 138 136-145 mmol/L Potassium Level 4.3 3.5-5.1 mmol/L Chloride Level 106 98-107 mmol/L Carbon Dioxide Level 23 20-31 mmol/L Anion Gap 9 5-15 Blood Urea Nitrogen 15 9-23 mg/dL Creatinine 0.98 0.550-1.02 mg/dL Glomerular Filtration Rate Calc 56 >90 mL/min BUN/Creatinine Ratio 15.3 10.0-20.0 Serum Glucose 116 H 74-106 mg/dL Hemoglobin A1c 5.4 <5.7 % A1C Calcium Level 9.6 8.7-10.4 mg/dL B-Type Natriuretic Peptide 89.24 0-100 pg/mL Urine Color Yellow Yellow Urine Clarity Clear Clear Urine pH 5.5 5.0-9.0 Urine Specific [place] 1.040 H 1.001-1.035 Urine Protein Negative Negative Urine Ketones Negative Negative Urine Blood Negative Negative /uL Urine Nitrite Negative Negative Urine Bilirubin Negative Negative Urine Urobilinogen Normal Negative mg/dL Urine Leukocyte Esterase Negative Negative /uL Urine RBC 1 0 - 4 /hpf Urine Microscopic WBC 1 0-5 /HPF Urine Squamous Epithelial Cells Few <5 /hpf Urine Bacteria None seen None Seen /hpf Urine Glucose Normal Normal mg/dL Assessment Impression: Acute hypoxic respiratory failure Hiatal hernia Ascites Atelectasis GGO on imaging Anemia Obesity BMI 31.3 Plan: Supplemental oxygen, on 2 LPM NC Titrate to keep O2 sats above 92%. Taper O2 as tolerated. Continue bronchodilators. Incentive spirometry Obtain spirometry testing to assess lung function Monitor hemoglobin Transfuse if less than 7.0 g/dL. On Protonix/sucralfate. Monitor renal function. Monitor electrolytes. Supplement as necessary. Monitor ins and outs. Diet and lifestyle modifications for weight reduction Obesity complicates all care DVT prophylaxis w/ Lovenox. Updated grandson on plan of care. Prognosis: Poor given patient's multiple co-morbidities. Rest of plan per hospitalist and other consultants. Thank you, REBECCA Alberto, for allowing me to participate in this patient's care. Further recommendations will depend on the patient's clinical course. Please do not hesitate to contact me if you have any questions or concerns. This medical document was created using an electronic medical record system with Joust dictation system. Although these documentations are being carefully reviewed, there may still be some phonetic and typographical changes. The errors are purely typographical, due to imperfection on the software program, and do not reflect any compromise in the patient's medical care. Plan discussed with: Patient, Other (RN//NOK) Date of Service: Apr 11, 2025 Billing Provider: JOSH ALEXANDRA MD Common Visit Codes: [id number] INP/OBS CARE (HIGH) JOSH ALEXANDRA MD Apr 11, 2025 23:24
[2025-04-12] VITALS (8 sets, daily range): BP systolic 78–140; BP diastolic 58–77; PULSE 73–92; RESP 16–18; TEMP 97.5–98.3; O2SAT 94–97
[2025-04-12 07:08] LABS: Hematocrit 34.5 % (36.0-46.0); Hemoglobin 12.1 g/dL (12.2-16.2); Mean Corpuscular Hemoglobin 33.6 pg (28.0-32.0); Mean Corpuscular Volume 95.7 fL (80.0-100.0); Nucleated Red Blood Cells % 0.2 %
[2025-04-12 07:10] LABS: Chloride 104 mmol/L (98-107); Potassium 4.2 mmol/L (3.5-5.1); Sodium 137 mmol/L (136-145)
[2025-04-12 07:11] LABS: Anion Gap 8 (5-15); Carbon Dioxide 25 mmol/L (20-31)
[2025-04-12 07:12] LABS: Calcium 9.1 mg/dL (8.7-10.4)
[2025-04-12 07:17] LABS: BUN/Creatinine Ratio 15.7 (10.0-20.0); Blood Urea Nitrogen 14 mg/dL (9-23)
[2025-04-12 07:18] LABS: Glucose 107 mg/dL (74-106)
--- NOTE | 2025-04-12 12:18 | DVHSR ---
APPROVED REPORT EXAM: Two-dimensional and M-mode echocardiogram with Doppler and color Doppler. Blood Pressure: 106/77 mmHg INDICATION Chest Pain RISK FACTORS Height: 66, Weight: 194 DIMENSIONS LVDd (3.8-5.7cm)LA (2D)4.3 (1.9-4.0cm)Aortic Root3.8 (2.0-3.7cm) LVDs (2.5-4.0cm)LA (MM) (1.9-4.0cm)Aortic Cusp Exc1.7 (1.5-2.0cm) EF (%) 72.0 (55-70%)Rt. Atrium4.7 (1.9-4.0cm)Asc. Aorta cm Mitral Valve MitralMitral Stenosis E wave1.21m/sMV Mean GR.6mmHg A wave1.82m/sMV Peak GR.125mmHg E/A ratio0.72D MVAcm2 DECEL [id number] 1/2 [id number] IVRTmsDop MVA1.81cm2 Aortic Valve Aortic ValveAortic Stenosis V12.02m/Yasmin Mean GR.14mmHg V22.57m/Yasmin Peak GR.26mmHg LVOT Diameter1.9 (1.8-2.4cm)Doppler AVA2.23cm2 AI P 1/2 Gmnm904.85ms Pulmonic Valve V21.20m/s Tricuspid Valve TR Velocity2.79m/s [id number] Conclusion lvef 65% moderate LVH normal rv functioin severe left atrium enlarged RA enlarged severe MAC, moderate Mitral stenosis mean gradient of 5 mmhg moderate aortic regurg mild aortic stenosis pericardial fat pad noted
--- NOTE | 2025-04-12 12:35 | DVHINCON2 ---
GI Consult Consult Note GI consult note Date of Consultation: 04/12/2025 Chief Complaint: Hiatal hernia Referring Physician: Dr. Castano H&P: 89-year-old female admitted with complains of chest pain. Patient is seen by Cardiology and pulmonology. Patient admits to feeling better at this time. No abdominal pain. Denies nausea vomiting no hematemesis. Occasional symptoms of GERD that she takes Tums once a week. No weight loss. No EGD in past. Patient denies melena or red blood in stool Past Medical History: HTN, hyperipidemia, arthritis Past Surgical History: Knee surgery Social History: Quit smoking, denies drinking ETOH and use of illegal drugs. Family History: Noncontributory Review of Systems: Constitutional: no fever, chill, weight loss HEENT: no eye pain, no hearing loss, no oral lesion, no scleral icterus Heart: no chest pain, no chest pressure Lung: no cough, no dyspnea with exertion Abdomen: see HPI Physical exam: General: NAD, AAOX3 Chest: lung thompson clear to auscultation Heart: RRR, no murmur Abdomen: non-distended, no tenderness to palpation, +BS Labs: Labs Test 04/12/25 06:26 04/11/25 12:29 04/11/25 07:00 04/10/25 22:00 Range/Units White Blood Count 7.1 4.4-10.8 10^3/uL Red Blood Count 3.60 L 4.0-5.20 10^6/uL Hemoglobin 12.1 L 12.2-16.2 g/dL Hematocrit 34.5 L 36.0-46.0 % Mean Corpuscular Volume 95.7 80.0-100.0 fL Mean Corpuscular Hemoglobin 33.6 H 28.0-32.0 pg Mean Corpuscular Hemoglobin Concent 35.1 32.0-36.0 g/dL Red Cell Distribution Width 12.7 11.8-14.3 % Platelet Count 148 140-450 10^3/uL Mean Platelet Volume 7.1 6.9-10.8 fL Neutrophils (%) (Auto) 78.7 37.0-80.0 % Lymphocytes (%) (Auto) 10.6 10.0-50.0 % Monocytes (%) (Auto) 8.4 0.0-12.0 % Eosinophils (%) (Auto) 2.1 0.0-7.0 % Basophils (%) (Auto) 0.2 0.0-2.0 % Neutrophils # (Auto) 5.6 1.6-8.6 10 ^3/uL Lymphocytes # (Auto) 0.8 0.4-5.4 10 ^3/uL Monocytes # (Auto) 0.6 0-1.3 10 ^3/uL Eosinophils # (Auto) 0.1 0-0.8 10 ^3/uL Basophils # (Auto) 0 0-0.2 10 ^3/uL Nucleated Red Blood Cells 0.2 % Sodium Level 137 136-145 mmol/L Potassium Level 4.2 3.5-5.1 mmol/L Chloride Level 104 98-107 mmol/L Carbon Dioxide Level 25 20-31 mmol/L Anion Gap 8 5-15 Blood Urea Nitrogen 14 9-23 mg/dL Creatinine 0.89 0.550-1.02 mg/dL Glomerular Filtration Rate Calc 62 >90 mL/min BUN/Creatinine Ratio 15.7 10.0-20.0 Serum Glucose 107 H 74-106 mg/dL Calcium Level 9.1 8.7-10.4 mg/dL Troponin I High Sensitivity 8 </=34 ng/L Triglycerides Level 88 < 150 mg/dL Cholesterol Level 123 < 200 mg/dL LDL Cholesterol 70 < 100 mg/dL HDL Cholesterol 41 40-59 mg/dL Thyroid Stimulating Hormone (TSH) 1.02 0.55-4.78 uIU/mL Platelet Estimate Adequate D-Dimer, Quantitative 1.13 H 0.0-0.49 mg/L FEU Hemoglobin A1c 5.4 <5.7 % A1C B-Type Natriuretic Peptide 89.24 0-100 pg/mL Test 04/10/25 02:02 Range/Units Urine Color Yellow Yellow Urine Clarity Clear Clear Urine pH 5.5 5.0-9.0 Urine Specific [place] 1.040 H 1.001-1.035 Urine Protein Negative Negative Urine Ketones Negative Negative Urine Blood Negative Negative /uL Urine Nitrite Negative Negative Urine Bilirubin Negative Negative Urine Urobilinogen Normal Negative mg/dL Urine Leukocyte Esterase Negative Negative /uL Urine RBC 1 0 - 4 /hpf Urine Microscopic WBC 1 0-5 /HPF Urine Squamous Epithelial Cells Few <5 /hpf Urine Bacteria None seen None Seen /hpf Urine Glucose Normal Normal mg/dL Imaging: CTA IMPRESSION: 1. No pulmonary embolism. 2. Moderate diffuse bilateral upper lobe ground-glass opacity and left basilar atelectasis. 3. Large hiatal hernia containing segments of bowel and portions of stomach. 4. Cholelithiasis. 5. Moderate ascites within the left upper quadrant. Abdominal ultrasound FINDINGS/IMPRESSION: No ascites seen in all 4 quadrants of the abdomen. Incidental note made of a cyst in the right lobe of the liver measuring 2.4 x 2.9 cm Assessment: Chest pain likely noncardiac Large hiatal hernia History of GERD Plan: Discussed with Dr. Light -discussed possible EGD with patient, grandson at bedside and family on telephone call. Pt was informed of the risks (bleeding, infection, perforation, reaction to sedation medications and cardiopulmonary arrest) and benefit. At this time patient and family refused EGD Continue diet as tolerated Conservative management Outpatient GI follow-up recommended Discussed plan with patient and family, and RN Thank you for this consult Date of Service: Apr 12, 2025 Billing Provider: UTE STONE Common Visit Codes: CONSULT ONLY Consultation Codes: [id number] CONSULT <60MIN UTE STONE Apr 12, 2025 12:35
[2025-04-12] MEDS ORDERED: TRAM50TA2 PO (15:48)
[2025-04-12] MEDS ORDERED: SUCR1TAB PO (15:48)
--- NOTE | 2025-04-12 15:50 | DVHDS2 ---
Discharge Summary Date of Admission Apr 11, 2025 at 05:06 Date of Discharge: Apr 12, 2025 Labs/Diagnostic Data: Laboratory Results Test 04/12/25 06:26 04/11/25 12:29 04/11/25 07:00 04/10/25 22:00 White Blood Count 7.1 10^3/uL (4.4-10.8) Red Blood Count 3.60 10^6/uL (4.0-5.20) Hemoglobin 12.1 g/dL (12.2-16.2) Hematocrit 34.5 % (36.0-46.0) Mean Corpuscular Volume 95.7 fL (80.0-100.0) Mean Corpuscular Hemoglobin 33.6 pg (28.0-32.0) Mean Corpuscular Hemoglobin Concent 35.1 g/dL (32.0-36.0) Red Cell Distribution Width 12.7 % (11.8-14.3) Platelet Count 148 10^3/uL (140-450) Mean Platelet Volume 7.1 fL (6.9-10.8) Neutrophils (%) (Auto) 78.7 % (37.0-80.0) Lymphocytes (%) (Auto) 10.6 % (10.0-50.0) Monocytes (%) (Auto) 8.4 % (0.0-12.0) Eosinophils (%) (Auto) 2.1 % (0.0-7.0) Basophils (%) (Auto) 0.2 % (0.0-2.0) Neutrophils # (Auto) 5.6 10 ^3/uL (1.6-8.6) Lymphocytes # (Auto) 0.8 10 ^3/uL (0.4-5.4) Monocytes # (Auto) 0.6 10 ^3/uL (0-1.3) Eosinophils # (Auto) 0.1 10 ^3/uL (0-0.8) Basophils # (Auto) 0 10 ^3/uL (0-0.2) Nucleated Red Blood Cells 0.2 % Sodium Level 137 mmol/L (136-145) Potassium Level 4.2 mmol/L (3.5-5.1) Chloride Level 104 mmol/L (98-107) Carbon Dioxide Level 25 mmol/L (20-31) Anion Gap 8 (5-15) Blood Urea Nitrogen 14 mg/dL (9-23) Creatinine 0.89 mg/dL (0.550-1.02) Glomerular Filtration Rate Calc 62 mL/min (>90) BUN/Creatinine Ratio 15.7 (10.0-20.0) Serum Glucose 107 mg/dL (74-106) Calcium Level 9.1 mg/dL (8.7-10.4) Troponin I High Sensitivity 8 ng/L (</=34) Triglycerides Level 88 mg/dL (< 150) Cholesterol Level 123 mg/dL (< 200) LDL Cholesterol 70 mg/dL (< 100) HDL Cholesterol 41 mg/dL (40-59) Thyroid Stimulating Hormone (TSH) 1.02 uIU/mL (0.55-4.78) Platelet Estimate Adequate D-Dimer, Quantitative 1.13 mg/L FEU (0.0-0.49) Hemoglobin A1c 5.4 % A1C (<5.7) B-Type Natriuretic Peptide 89.24 pg/mL (0-100) Test 04/10/25 02:02 Urine Color Yellow (Yellow) Urine Clarity Clear (Clear) Urine pH 5.5 (5.0-9.0) Urine Specific [place] 1.040 (1.001-1.035) Urine Protein Negative (Negative) Urine Ketones Negative (Negative) Urine Blood Negative /uL (Negative) Urine Nitrite Negative (Negative) Urine Bilirubin Negative (Negative) Urine Urobilinogen Normal mg/dL (Negative) Urine Leukocyte Esterase Negative /uL (Negative) Urine RBC 1 /hpf (0 - 4) Urine Microscopic WBC 1 /HPF (0-5) Urine Squamous Epithelial Cells Few /hpf (<5) Urine Bacteria None seen /hpf (None Seen) Urine Glucose Normal mg/dL (Normal) Other Laboratory Tests 04/12/25 06:26 Brief Hx & Hospital Course: 89-year-old female with known history of hypertension, osteoarthritis, suspected COPD, with a previous history of tobacco use disorder/30 pack-year history quit 37 years ago presented to the hospital with a left-sided chest pain which was sharp without any radiation eventually patient's was admitted. Troponins were normal 2D echo shows preserved ejection fraction. Patient is also desatting less than 90% on exertion , we will arrange home oxygen. Patient's CT angio shows no evidence of PE but there was bilateral upper lobe opacities with a left lung atelectasis. Antibiotics will be given for possible pneumonia for 10 days. Also give incentive spirometry for home. Once oxygen is arranged patient can be discharged. For large hiatus hernia continue taking Pepcid and outpatient follow up with the GI. Patient was cleared by GI as well as Pulmonary to be discharged with a close follow up as an outpatient with the PCP, GI, Pulmonary. Condition at Discharge: Stable Final Diagnosis/Problems List 89-year-old female with known history of hypertension, osteoarthritis, suspected COPD, with a previous history of tobacco use disorder/30 pack-year history quit 37 years ago presented to the hospital with a left-sided chest pain which was sharp without any radiation found to have 1. Chest pain rule out [place] 2. Acute hypoxic respiratory failure requiring 2 L of oxygen by continuous nasal cannula 3. Moderate diffuse bilateral upper lobe ground-glass opacity and left basilar atelectasis 4. Large hiatus hernia containing segments of small bowel and portion of stomach 5. GERD 6. Hypertension 7. Osteoarthritis 8. Previous history of tobacco use disorder Discharge Disposition: Home with [facility] Discharge Will this Physician continue t: No Discharge Instruct/Medications Diet: Cardiac 2g Na,low cholest Activity: See Comment Activity comment: No driving, no signing legal documents, no playing on machinery while on tramadol out any other pain medications. Follow Up/Referral: Follow up with the PCP in 1-2 weeks Follow up with Dr. Silveira in 1-2 weeks Medications: Medication as prescribed. New Medications: Amoxicillin & Pot Clavulanate (Augmentin Tablet) 875 Mg Tb 875 MG PO BID for 10 Days, #20 TAB Sucralfate (Sucralfate) 1 Gm Tab 1 GM PO BID for 30 Days, #60 TAB Changed Medications: Tramadol Hcl (Tramadol Hcl) 50 Mg Tab 50 MG PO Q8HP PRN for PAIN SCALE 7 THRU 10, #20 MG (Changed from: Q6HP) Continued Medications: Amlodipine Besylate (Norvasc Tablet) 5 Mg Tb 1 TAB PO DAILY for HIGH BLOOD PRESSURE, #30 TAB 5 Refills Atorvastatin Calcium (Atorvastatin Calcium) 20 Mg Tab 1 TAB PO DAILY, #30 TAB 5 Refills Famotidine (Famotidine) 20 Mg Tab 20 MG PO BID for HEART BURN for 30 Days, MG Fluoxetine Hcl (Fluoxetine Hcl) 20 Mg Cap 20 MG PO DAILY for DEPRESSION for 30 Days, MG Gabapentin (Gabapentin) 300 Mg Cap 300 MG PO for 30 Days, MG Ketoconazole (Ketoconazole) 2 % Cre 1 APPLIC TOP BID for UNDER BREASTS, PERIANAL AREA, #60 GRAMS 1 Refill Tolterodine Tartrate (Detrol La) 2 Mg Cap 1 CAP PO DAILY for OVERACTIVE BLADDER, #30 CAP 2 Refills Discontinued Medications: Meloxicam (Meloxicam) 7.5 Mg Tab 1 TAB PO DAILY for ARTHRITIS, #30 TAB 2 Refills Scheduled Amlodipine Besylate (Norvasc Tablet), 1 TAB PO DAILY, (Reported) Amoxicillin & Pot Clavulanate (Augmentin Tablet), 875 MG PO BID Atorvastatin Calcium (Atorvastatin Calcium), 1 TAB PO DAILY, (Reported) Famotidine (Famotidine), 20 MG PO BID, (Reported) Fluoxetine Hcl (Fluoxetine Hcl), 20 MG PO DAILY, (Reported) Ketoconazole (Ketoconazole), 1 APPLIC TOP BID, (Reported) Meloxicam (Meloxicam), 1 TAB PO DAILY, (Reported) Sucralfate (Sucralfate), 1 GM PO BID Tolterodine Tartrate (Detrol La), 1 CAP PO DAILY, (Reported) Scheduled PRN Tramadol Hcl (Tramadol Hcl), 50 MG PO Q8HP PRN for PAIN SCALE 7 THRU 10 Miscellaneous Medications Gabapentin (Gabapentin), 300 MG PO, (Reported) Discharge Statement: "Patient was advised to return to the ER or call 911 if any headaches, dizziness, shortness of breath, chest pain, abdominal pain, bleeding, fevers, or worsening of medical condition. Patient was counseled about treatment plan, medications, possible side effects, patientverbalized understanding. All questions were answered to the best of my ability. This discharge took greater then 30 minutes in planning, reviewing documentation, counseling the patient, and discussing with other team members." ASSESSMENT ASSESSMENT Assessment 89-year-old female with known history of hypertension, osteoarthritis, suspected COPD, with a previous history of tobacco use disorder/30 pack-year history quit 37 years ago presented to the hospital with a left-sided chest pain which was sharp without any radiation found to have 1. Chest pain rule out [place] 2. Acute hypoxic respiratory failure requiring 2 L of oxygen by continuous nasal cannula 3. Moderate diffuse bilateral upper lobe ground-glass opacity and left basilar atelectasis 4. Large hiatus hernia containing segments of small bowel and portion of stomach 5. GERD 6. Hypertension 7. Osteoarthritis 8. Previous history of tobacco use disorder Date of Service: Apr 12, 2025 Billing Provider: JALEN HARVEY MD Common Visit Codes: NOT BILLABLE JALEN HARVEY MD Apr 12, 2025 15:50
[2025-04-12] MEDS ORDERED: AUG875T PO (16:01)
[2025-04-12] MEDS: AMOXICILLIN/CLAVUL 875 MG TAB PO ONE (17:48)
--- NOTE | 2025-04-12 22:39 | DVHPN2 ---
Subjective DOS: 04/12/2025 Patient seen and examined at bedside. Remains on supplemental oxygen Overnight events reviewed. Changes from previous H/P or p: No Changes Eyes: No Pain, No Vision change, No Conjunctivae inflammation, No Eyelid inflammation, No Other, No Redness ENT: No Ear pain, No Ear discharge, No Nose pain, No Nose discharge, No Nose congestion, No Mouth pain, No Mouth swelling, No Throat pain, No Throat swelling, No Other Cardiovascular: Chest Pain; No Palpitations, No Orthopnea, No Paroxysmal Noc. Dyspnea, No Edema, No Lt Headedness, No Other Respiratory: No Cough, No Dry, No Shortness of breath, No SOB with excertion, No Wheezing, No Hemoptysis, No Pleuritic Pain, No Sputum, No Other Gastrointestinal: No Nausea, No Vomiting, No Abdominal Pain, No Diarrhea, No Constipation, No Melena, No Hematochezia, No Other Genitourinary: No Dysuria, No Frequency, No Incontinence, No Hematuria, No Retention, No Other Musculoskeletal: No other, No neck pain, No shoulder pain, No arm pain, No back pain, No hand pain, No leg pain, No foot pain Skin: No Rash, No Lesions, No Jaundice, No Bruising, No Other Objective Vitals Vital Signs Date Time Temp Pulse Resp B/P (MAP) Pulse Ox O2 Delivery O2 Flow Rate FiO2 04/12/25 17:54 92 122/62 (82) 04/12/25 17:00 98.0 18 96 98.0 04/12/25 10:00 Nasal Cannula* 2 28 Intake/Output Intake and Output 04/12/25 07:00 Intake Total 480 ml Output Total 75 ml Balance 405 ml Intake Oral 480 ml Output Urine Total 75 ml # Voids 2 Exam Gen.: Patient lying in bed in no apparent distress. On supplemental oxygen. Head: Normocephalic, atraumatic. Eyes: EOMI/PERRLA. Ears: Normal hearing. Normal anatomy. Neck/trachea: Trachea midline, supple. Nose: Normal external anatomy. Mouth: Moist mucous membranes. Chest: Decreased air entry bilaterally. No wheezing or rhonchi. Cardiovascular: Positive S1, positive S2. Regular rate and rhythm. Abdomen: Positive bowel sounds in all 4 quadrants. Soft, non-tender, non- distended. : Deferred. Rectal: Deferred. Skin: Warm, dry. Intact. Extremities: 2+ radial pulses bilaterally. No lower extremity edema. Neuro: Awake, alert, oriented x3. No gross motor or sensory deficits. Cranial nerves II through XII intact. Gait not assessed. Laboratory Results Laboratory Tests 04/12/25 06:26 Chemistry Test 04/12/25 06:26 Calcium Level 9.1 mg/dL (8.7-10.4) Urinalysis Test 04/10/25 02:02 Urine Color Yellow (Yellow) Urine Clarity Clear (Clear) Urine pH 5.5 (5.0-9.0) Urine Specific [place] 1.040 (1.001-1.035) Urine Protein Negative (Negative) Urine Ketones Negative (Negative) Urine Blood Negative /uL (Negative) Urine Nitrite Negative (Negative) Urine Bilirubin Negative (Negative) Urine Urobilinogen Normal mg/dL (Negative) Urine Leukocyte Esterase Negative /uL (Negative) Urine RBC 1 /hpf (0 - 4) Urine Microscopic WBC 1 /HPF (0-5) Urine Squamous Epithelial Cells Few /hpf (<5) Urine Bacteria None seen /hpf (None Seen) Urine Glucose Normal mg/dL (Normal) Assessment/Plan Assessment/Plan Impression: Acute hypoxic respiratory failure Hiatal hernia Ascites Atelectasis GGO on imaging Anemia Obesity Events: Remains on supplemental oxygen, 2 LPM NC Taper O2 as tolerated Arranged for home oxygen Continue bronchodilators Continue antibiotics Incentive spirometry DVT prophylaxis Recommend followup as outpatient in [facility]. Labs and imaging reviewed. Rest of plan as noted below. Plan: Supplemental oxygen Titrate to keep O2 sats above 92%. Continue bronchodilators. Incentive spirometry Obtain spirometry testing to assess lung function Recommend followup as outpatient in [facility]. Monitor hemoglobin Transfuse if less than 7.0 g/dL. On Protonix/sucralfate. Monitor renal function. Monitor electrolytes. Supplement as necessary. Monitor ins and outs. Diet and lifestyle modifications for weight reduction Obesity complicates all care DVT prophylaxis w/ Lovenox. Prognosis: Poor given patient's multiple co-morbidities. Rest of plan per hospitalist and other consultants. Thank you, REBECCA Alberto, for allowing me to participate in this patient's care. Further recommendations will depend on the patient's clinical course. Please do not hesitate to contact me if you have any questions or concerns. This medical document was created using an electronic medical record system with Dragon computerized dictation system. Although these documentations are being carefully reviewed, there may still be some phonetic and typographical changes. The errors are purely typographical, due to imperfection on the software program, and do not reflect any compromise in the patient's medical care Plan discussed with: Patient, Other (RN Shahrzad) Date of Service: Apr 12, 2025 Billing Provider: JOSH ALEXANDRA MD Common Visit Codes: [id number] INP/OBS CARE(HIGH) JOSH ALEXANDRA MD Apr 12, 2025 22:39
== END 2025-04-12 18:37 | disposition home health service (06) | DRG 304 ==
LOC: EDBD 21:49 → ER 21:49 → OVERFLOW 04-11 05:06 → TELE-EAST 04-11 14:13
PROVIDERS: ADMIT Nurse Practitioner Family; ATTEND Nurse Practitioner Family
DX: I16.0 Hypertensive urgency (principal); J96.01 Acute respiratory failure with hypoxia; R18.8 Other ascites; J44.0 Chronic obstructive pulmonary disease with (acute) lower respiratory infection; K21.9 Gastro-esophageal reflux disease without esophagitis; E66.9 Obesity, unspecified; E78.5 Hyperlipidemia, unspecified; I10 Essential (primary) hypertension; K44.9 Diaphragmatic hernia without obstruction or gangrene; K80.20 Calculus of gallbladder without cholecystitis without obstruction; Z96.651 Presence of right artificial knee joint; D64.9 Anemia, unspecified; J44.9 Chronic obstructive pulmonary disease, unspecified; F03.90 Unspecified dementia, unspecified severity, without behavioral disturbance, psychotic disturbance, mood disturbance, and anxiety; Z68.31 Body mass index [BMI] 31.0-31.9, adult; Z79.2 Long term (current) use of antibiotics; Z87.891 Personal history of nicotine dependence; Z79.899 Other long term (current) drug therapy
CPT/HCPCS: 36415; 71045; 71275; 76705; 80048; 80061; 81001; 83036; 83880; 84443; 84484; 85025; 85379; 93005; 93306; 93970; 94060; 94640; 97163; G0378; J2405; J2470

== ENCOUNTER 2025-04-26 07:12 | Inpatient (IN) | payer OTHER ==
[~2025-04-26] VITALS: Ht 162.6 cm; Wt 91.0 kg
[~2025-04-26 07:12] MED LIST: AML5T PO; ATOR20TA50 PO; AUG875T PO; FAMO-12 PO; FLUO-125 PO; GABA-1250 PO; KETO2CRE4 TOP; SUCR1TAB PO; TOLT2CAP PO; TRAM50TA2 PO
--- NOTE | 2025-04-26 07:17 | ED.PDOC ---
Musculoskeletal HPI Comments 89 year old female PMHx HTN presents to the ED via EMS with a chief complaint of RT shoulder pain s/p fall onset today (04/26/25). Patient states she was getting out of bed, fell, landing on her RT side. Patient is currently experiencing RT shoulder pain. Patient's daughter called 911, assisted patient to a chair prior to EMS arrival. Denies LOC, head injury, dizziness, nausea, vomiting, chest pain, shortness of breath, abdominal pain, blurred vision, headache. No other symptoms or modifying factors present at this time. Time Seen by MD: 07:12 Reviewed Notes: Nurses Notes, Medications, Allergies Allergies: Coded Allergies: NO KNOWN ALLERGIES (Unverified , 06/05/16) Home Meds Active Scripts Amoxicillin & Pot Clavulanate (AUGMENTIN TABLET) 875 Mg Tb, 875 MG PO BID for 10 Days, #20 TAB Prov:JALEN HARVEY MD 04/12/25 Sucralfate (Sucralfate) 1 Gm Tab, 1 GM PO BID for 30 Days, #60 TAB Prov:JALEN HARVEY MD 04/12/25 Tramadol Hcl (Tramadol Hcl) 50 Mg Tab, 50 MG PO Q8HP PRN for PAIN SCALE 7 THRU 10, #20 MG Prov:JALEN HARVEY MD 04/12/25 Reported Medications Ketoconazole (Ketoconazole) 2 % Cre, 1 APPLIC TOP BID for UNDER BREASTS, PERIANAL AREA, #60 GRAMS 1 Refill 04/11/25 Tolterodine Tartrate (Detrol La) 2 Mg Cap, 1 CAP PO DAILY for OVERACTIVE BLADDER, #30 CAP 2 Refills 04/11/25 Gabapentin (Gabapentin) 300 Mg Cap, 300 MG PO for 30 Days, MG 04/11/25 Fluoxetine Hcl (Fluoxetine Hcl) 20 Mg Cap, 20 MG PO DAILY for DEPRESSION for 30 Days, MG 04/11/25 Famotidine (Famotidine) 20 Mg Tab, 20 MG PO BID for HEART BURN for 30 Days, MG 04/11/25 Amlodipine Besylate (NORVASC TABLET) 5 Mg Tb, 1 TAB PO DAILY for HIGH BLOOD PRESSURE, #30 TAB 5 Refills 04/11/25 Atorvastatin Calcium (ATORVASTATIN CALCIUM) 20 Mg Tab, 1 TAB PO DAILY, #30 TAB 5 Refills 04/11/25 Information Source: Patient, Emergency Med Personnel Mode of Arrival: EMS Location: Right Extremity Location: Shoulder Timing: Hours Prehospital treatment: None Severity: Moderate Able to Move Extremity: Yes Bear Weight: Limited Pain: Moderate Mechanism: Spontaneous Circumstances: Fall Onset of Symptoms: After Trauma Symptoms: Pain DVT Risk Factors: NONE Last Tetanus: UTD History of: Knee Operation Associated signs and symptoms: Shoulder pain Past Medical History PAST MEDICAL HISTORY: HTN Surgical History (Other): RT knee, cataracts BUSINESS PROFESSOR History: No Pertinent BUSINESS PROFESSOR History Family History Family History: Reviewed,noncontributory to illness, No family hx of Cancer, No family hx of DM, No family hx of Heart tyree, No family hx of HTN, No family hx ofKidney tyree, No family hx of Liver tyree, No family hx of Lung tyree, No family hx of Stroke Social History Smoker: Non-Smoker Alcohol: Denies ETOH Use Drugs: Denies Drug Use Lives In: Home Constitutional: denies: chills, diaphoresis, fatigue, fever, malaise, sweats, weakness, others EENTM: denies: blurred vision, double vision, ear bleeding, ear discharge, ear drainage, ear pain, ear ringing, eye pain, eye redness, hearing loss, mouth pain, mouth swelling, nasal discharge, nose bleeding, nose congestion, nose pain, photophobia, tearing, throat pain, throat swelling, voice changes, others Respiratory: denies: cough, hemoptysis, orthopnea, SOB at rest, shortness of breath, SOB with excertion, stridor, wheezing, others Cardiovascular: denies: chest pain, dizzy spells, diaphoresis, Dyspnea on exertion, edema, irregular heart beat, left arm pain, lightheadedness, palpitations, PND, syncope, others Gastrointestinal: denies: abdomen distended, abdominal pain, blood streaked bowels, constipated, diarrhea, dysphagia, difficulty swallowing, hematemesis, melena, nausea, poor appetite, poor fluid intake, rectal bleeding, rectal pain, vomiting, others Genitourinary: denies: abnormal vagina bleeding, burning, dyspareunia, dysuria, flank pain, frequency, hematuria, incontinence, pain, , vagina discharge, urgency, others Neurological: denies: dizziness, fainting, headache, left sided numbness, left sided weakness, numbness, paresthesia, pre-existing deficit, right sided numbness, right sided weakness, seizure, speech problems, tingling, tremors, weakness, others Musculoskeletal: reports: others (RT shoulder pain); denies: back pain, gout, joint pain, joint swelling, muscle pain, muscle stiffness, neck pain Integumetry: denies: bruises, change in color, change in hair/nails, dryness, laceration, lesions, lumps, rash, wounds, others Allergic/Immunocompromised: denies: Difficulty Healing, Frequent Infections, Hives, Itching, others Hematologic/Lymphatic: denies: anemia, blood clots, easy bleeding, easy bruising, swollen glands, others Endocrine: denies: excessive hunger, excessive sweating, excessive thirst, excessive urination, flushing, intolerance to cold, intolerance to heat, unexplained weight gain, unexplained weight loss, others Psychiatric: denies: anxiety, bipolar disorder, depression, hopeless, panic disorder, schizophrenia, sleepless, suicidal, others All Other Systems: Reviewed and Negative Physical Exam General Appearance: Moderate Distress HEENT: Normal ENT Inspection, Pharynx Normal, TMs Normal Neck: Full Range of Motion, Non-Tender, Normal, Normal Inspection Respiratory: Chest Non-Tender, Lungs Clear, No Accessory Muscle Use, No Respiratory Distress, Normal Breath Sounds Cardiovascular: No Edema, No JVD, No Murmur, No Gallop, Normal Peripheral Pulses, Regular Rate/Rhythm Breast Exam: Deferred Gastrointestinal: No Organomegaly, Non Tender, No Pulsatile Mass, Normal Bowel Sounds, Soft Genitalia: Deferred Pelvic: Deferred Rectal: Deferred Extremities: No calf tenderness, Normal capillary refill, No pedal edema, Other (Tenderness to the left shoulder with decreased range of motion) Musculoskeletal : Apperance: Normal Neurologic: Alert, 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 Was a procedure done?: No EKG EKG : Pulse Rate (adult): 77 [place]: LAD Cardiac Rhythm: NSR Hypertrophy: LAE Differential Diagnosis EXT Differential Diagnosis: Other (Fracture, contusion, syncope, generalized weakness) X-Ray, Labs, Meds, VS Vital Signs Date Time Temp Pulse Resp B/P (MAP) Pulse Ox O2 Delivery O2 Flow Rate FiO2 10/13/25 10:36 97.9 85 18 112/74 (87) 97 97.9 04/26/25 07:26 77 04/26/25 07:17 98.4 82 18 124/74 98 98.4 04/26/25 07:15 77 Lab Test 04/26/25 07:25 Range/Units White Blood Count 9.5 4.4-10.8 10^3/uL Red Blood Count 3.79 L 4.0-5.20 10^6/uL Hemoglobin 12.6 12.2-16.2 g/dL Hematocrit 36.4 36.0-46.0 % Mean Corpuscular Volume 96.0 80.0-100.0 fL Mean Corpuscular Hemoglobin 33.2 H 28.0-32.0 pg Mean Corpuscular Hemoglobin Concent 34.6 32.0-36.0 g/dL Red Cell Distribution Width 12.4 11.8-14.3 % Platelet Count 239 140-450 10^3/uL Mean Platelet Volume 7.0 6.9-10.8 fL Neutrophils (%) (Auto) 83.9 H 37.0-80.0 % Lymphocytes (%) (Auto) 7.1 L 10.0-50.0 % Monocytes (%) (Auto) 6.1 0.0-12.0 % Eosinophils (%) (Auto) 2.6 0.0-7.0 % Basophils (%) (Auto) 0.3 0.0-2.0 % Neutrophils # (Auto) 7.9 1.6-8.6 10 ^3/uL Lymphocytes # (Auto) 0.7 0.4-5.4 10 ^3/uL Monocytes # (Auto) 0.6 0-1.3 10 ^3/uL Eosinophils # (Auto) 0.3 0-0.8 10 ^3/uL Basophils # (Auto) 0 0-0.2 10 ^3/uL Nucleated Red Blood Cells 0.1 % Sodium Level 140 136-145 mmol/L Potassium Level 4.3 3.5-5.1 mmol/L Chloride Level 103 98-107 mmol/L Carbon Dioxide Level 29 20-31 mmol/L Anion Gap 8 5-15 Blood Urea Nitrogen 17 9-23 mg/dL Creatinine 0.92 0.550-1.02 mg/dL Glomerular Filtration Rate Calc 60 >90 mL/min BUN/Creatinine Ratio 18.5 10.0-20.0 Serum Glucose 122 H 74-106 mg/dL Calcium Level 9.6 8.7-10.4 mg/dL Current Medications Medications (Trade) Dose Ordered Sig/Tone Route Start Time Stop Time Status Last Admin Acetaminophen/ Hydrocodone Bitart ([place] 5/325MG Tab) 1 tab ONCE ONCE PO 04/26/25 10:30 04/26/25 10:31 DC 04/26/25 10:33 IV Hep-Lock was established. The x-ray of the left shoulder is negative for any fracture. The CAT scan of the head is negative. The patient was given [place] for the pain to the left shoulder The patient will be placed in a sling The CBC and chemistry panel are within normal limits The patient is being admitted with a diagnosis of autonomic dysfunction We did speak with the hospitalist They understand and agree with the management. Images Reviewed?: Images reviewed and evaluated by me Time of 1ST Reevaluation: 07:42 Reevaluation 1ST: Unchanged Patient Education/Counseling: Diagnosis, Treatment, Prognosis Family Education/Counseling: No Family Present Departure 1 Departure Time of Disposition: 10:48 Impression: Primary Impression: Autonomic dysfunction Additional Impressions: Episode of syncope Qualified Codes: R55 - Syncope and collapse Contusion of left shoulder Qualified Codes: S40.012A - Contusion of left shoulder, initial encounter Disposition: ADMITTED INPATIENT [facility]mit to: [facility] Condition: Fair Critical Care Note Critical Care Time?: Yes (35 min-critical care time only) Stability Stability form required: Yes Unstable for transfer: Telemetry monitoring (Telemetry monitoring required), ED Physician Assesment (Clinical assesment) Heart Score Heart Score: Heart Score Response (Comments) Value History N/A 0 EKG N/A 0 Age N/A 0 Risk Factors N/A 0 Troponin N/A 0 Total 0 I personally scribed for KARY SAEED MD ([email or web address]) on 04/26/25 at 07:17. Electronically submitted by Margarita Gloria ([email or web address]). KARY SAEED MD Apr 26, 2025 07:17
[2025-04-26 07:48] LABS: Hematocrit 36.4 % (36.0-46.0); Hemoglobin 12.6 g/dL (12.2-16.2); Mean Corpuscular Hemoglobin 33.2 pg (28.0-32.0); Mean Corpuscular Volume 96.0 fL (80.0-100.0); Nucleated Red Blood Cells % 0.1 %
[2025-04-26 07:53] LABS: Anion Gap 8 (5-15); Carbon Dioxide 29 mmol/L (20-31); Chloride 103 mmol/L (98-107); Potassium 4.3 mmol/L (3.5-5.1); Sodium 140 mmol/L (136-145)
[2025-04-26 07:54] LABS: Calcium 9.6 mg/dL (8.7-10.4)
[2025-04-26 07:59] LABS: BUN/Creatinine Ratio 18.5 (10.0-20.0); Blood Urea Nitrogen 17 mg/dL (9-23)
[2025-04-26 08:00] LABS: Glucose 122 mg/dL (74-106)
--- NOTE | 2025-04-26 08:38 | DVH ---
CT HEAD WITHOUT CONTRAST INDICATION: fall EXAM DATE: 04/26/2025 08:01 AM COMPARISON: None RADIATION DOSE: CTDIvol: 58 mGy, DLP: 1032 mGy*cm PROCEDURE: CT scans of the head were obtained from the vertex to the skull base. Sagittal and coronal reconstructions were provided. All CT scans at this medical facility are performed using dose modulation techniques as appropriate t o a performed exam including the following: Automated exposure control was utilized; adjustment of th e MA and/or KV according to patient size; and use of iterative reconstruction technique. FINDINGS: There is sulcal and ventricular prominence. The brainshows normal morphology and navas-whi te matter differentiation, without intracranial hemorrhage, extra-axial fluid collection, mass effect or acute large vessel infarct. The ventricles are normal in size. The basal cisterns are patent. The skull and visible facial bones are intact. The paranasal sinuses, mastoid air cells and middle ear c avities are well-aerated. The soft tissues of the scalp are unremarkable. IMPRESSION: No acute intracranial abnormality.
--- NOTE | 2025-04-26 08:43 | DVH ---
CLINICAL INDICATION: Pain; fall TECHNIQUE: 3 radiographic views of the left shoulder were obtained. Comparison: CR SHOULDER LEFT 2-4 VIEWS on DOS: 04/09/24, MR SHOULDER RIGHT WO on DOS: 10/02/23 FINDINGS/IMPRESSION: There is no evidence of acute fracture or dislocation. The visualized joint space is well maintained. Partially visualized large hiatal hernia and left retr ocardiac opacity. The alignment is anatomical. There is no radiopaque foreign body.
[2025-04-26] MEDS: HYDROcodone-ACET 5/325MG TAB PO ONE (10:33)
[2025-04-26 10:36] VITALS: BP 112/74; PULSE 85; RESP 18; TEMP 97.9; O2SAT 97
[2025-04-26] MEDS ORDERED: HYDROcodone-ACET 5/325MG TAB PO PRN (11:30)
[2025-04-26] MEDS ORDERED: ACETAMINOPHEN 325 MG TAB PO PRN (11:30)
[2025-04-26] MEDS ORDERED: ONDANSETRON HCL 4 MG/2 ML VIAL IV PRN (11:30)
[2025-04-26] MEDS ORDERED: MORPHINE SULFATE INJ 2 MG/ml SYRG IV PRN ×2 (11:30)
[2025-04-26] MEDS: SODIUM CHLORIDE 0.9% 1,000 ML IV SCH (11:30)
[2025-04-26] MEDS ORDERED: DOCUSATE SOD 100 MG CAP PO PRN (11:30)
[2025-04-26] MEDS ORDERED: NITROGLYCERIN 0.4 MG SL TAB SL PRN (11:30)
--- NOTE | 2025-04-26 15:55 | DVHINCON2 ---
Date Seen: Apr 26, 20[address] physician Dr. Cody. Reason for Consultation Left shoulder pain with a questionable syncope. History of Present Illness 89-year-old female with a known history of hypertension, previous history of right knee surgery and cataract surgery presented to the hospital with a status post fall found to have left shoulder contusion. CT head was negative for any acute pathology, shoulder x-ray shows no evidence of any acute fracture. Patient's family has requested to go home and outpatient follow up with the home hospice. Family History: Patient reports no known family medical history. Allergies: Coded Allergies: NO KNOWN ALLERGIES (Unverified , 06/05/16) Home Meds Active Scripts Amoxicillin & Pot Clavulanate (AUGMENTIN TABLET) 875 Mg Tb, 875 MG PO BID for 10 Days, #20 TAB Prov:JALEN HARVEY MD 04/12/25 Sucralfate (Sucralfate) 1 Gm Tab, 1 GM PO BID for 30 Days, #60 TAB Prov:JALEN HARVEY MD 04/12/25 Tramadol Hcl (Tramadol Hcl) 50 Mg Tab, 50 MG PO Q8HP PRN for PAIN SCALE 7 THRU 10, #20 MG Prov:JALEN HARVEY MD 04/12/25 Reported Medications Ketoconazole (Ketoconazole) 2 % Cre, 1 APPLIC TOP BID for UNDER BREASTS, PERIANAL AREA, #60 GRAMS 1 Refill 04/11/25 Tolterodine Tartrate (Detrol La) 2 Mg Cap, 1 CAP PO DAILY for OVERACTIVE BLADDER, #30 CAP 2 Refills 04/11/25 Gabapentin (Gabapentin) 300 Mg Cap, 300 MG PO for 30 Days, MG 04/11/25 Fluoxetine Hcl (Fluoxetine Hcl) 20 Mg Cap, 20 MG PO DAILY for DEPRESSION for 30 Days, MG 04/11/25 Famotidine (Famotidine) 20 Mg Tab, 20 MG PO BID for HEART BURN for 30 Days, MG 04/11/25 Amlodipine Besylate (NORVASC TABLET) 5 Mg Tb, 1 TAB PO DAILY for HIGH BLOOD PRESSURE, #30 TAB 5 Refills 04/11/25 Atorvastatin Calcium (ATORVASTATIN CALCIUM) 20 Mg Tab, 1 TAB PO DAILY, #30 TAB 5 Refills 04/11/25 Current Medications Current Medications Medications (Trade) Dose Ordered Sig/Tone Route PRN Reason Start Time Stop Time Status Last Admin Sodium Chloride 1,000 ml @ 120 mls/hr Q8H20M IV 04/26/25 11:30 Acetaminophen/ Hydrocodone Bitart ([place] 5/325MG Tab) 1 tab Q4HP PRN PO MODERATE PAIN (4-6 PAIN SCALE) 04/26/25 11:30 Ondansetron HCl (Zofran) 4 mg Q4HP PRN IV NAUSEA / VOMITING 04/26/25 11:30 Docusate Sodium (Colace Capsule) 100 mg BIDPRN PRN PO FOR CONSTIPATION 04/26/25 11:30 Enoxaparin Sodium (Lovenox) 40 mg DAILY SC 04/27/25 10:00 Acetaminophen (Tylenol Tablet) 650 mg Q6HP PRN PO PAIN SCALE 1-3 OR TEMP>100.4 04/26/25 11:30 Morphine Sulfate 2 mg Q4HPRN PRN IV SEVERE PAIN (7-10 PAIN SCALE) 04/26/25 11:30 Nitroglycerin (Ntrostat Sublingual) 0.4 mg Q5MINP PRN SL FOR CHEST PAIN 04/26/25 11:30 Morphine Sulfate 2 mg Q30M PRN IV FOR CHEST PAIN 04/26/25 11:30 Vital Signs Vital Signs Date Time Temp Pulse Resp B/P (MAP) Pulse Ox O2 Delivery O2 Flow Rate FiO2 04/26/25 10:36 97.9 85 18 112/74 (87) 97 97.9 Labs/Diagnostic Data Labs Test 04/26/25 07:25 Range/Units White Blood Count 9.5 4.4-10.8 10^3/uL Red Blood Count 3.79 L 4.0-5.20 10^6/uL Hemoglobin 12.6 12.2-16.2 g/dL Hematocrit 36.4 36.0-46.0 % Mean Corpuscular Volume 96.0 80.0-100.0 fL Mean Corpuscular Hemoglobin 33.2 H 28.0-32.0 pg Mean Corpuscular Hemoglobin Concent 34.6 32.0-36.0 g/dL Red Cell Distribution Width 12.4 11.8-14.3 % Platelet Count 239 140-450 10^3/uL Mean Platelet Volume 7.0 6.9-10.8 fL Neutrophils (%) (Auto) 83.9 H 37.0-80.0 % Lymphocytes (%) (Auto) 7.1 L 10.0-50.0 % Monocytes (%) (Auto) 6.1 0.0-12.0 % Eosinophils (%) (Auto) 2.6 0.0-7.0 % Basophils (%) (Auto) 0.3 0.0-2.0 % Neutrophils # (Auto) 7.9 1.6-8.6 10 ^3/uL Lymphocytes # (Auto) 0.7 0.4-5.4 10 ^3/uL Monocytes # (Auto) 0.6 0-1.3 10 ^3/uL Eosinophils # (Auto) 0.3 0-0.8 10 ^3/uL Basophils # (Auto) 0 0-0.2 10 ^3/uL Nucleated Red Blood Cells 0.1 % Sodium Level 140 136-145 mmol/L Potassium Level 4.3 3.5-5.1 mmol/L Chloride Level 103 98-107 mmol/L Carbon Dioxide Level 29 20-31 mmol/L Anion Gap 8 5-15 Blood Urea Nitrogen 17 9-23 mg/dL Creatinine 0.92 0.550-1.02 mg/dL Glomerular Filtration Rate Calc 60 >90 mL/min BUN/Creatinine Ratio 18.5 10.0-20.0 Serum Glucose 122 H 74-106 mg/dL Calcium Level 9.6 8.7-10.4 mg/dL Assessment 89-year-old female with a known history of hypertension, previous history of right knee surgery, cataract surgery presented to the hospital with fall found to have left shoulder contusion. Patient's family requested to go home. Patient is being discharged under stable condition. Patient needs to follow up as an outpatient with the home hospice. Problems(with codes): (1) Contusion of left shoulder (2) Episode of syncope Plan discussed with: Other Date of Service: Apr 26, 2025 Billing Provider: JALEN HARVEY MD Common Visit Codes: NOT BILLABLE JALEN HARVEY MD Apr 26, 2025 15:55
[2025-04-27] MEDS ORDERED: ENOXAPARIN SOD 40 MG/0.4 ML SYRINGE SC SCH (10:00)
--- NOTE | 2025-04-29 09:27 | ECG ---
[facility] Test Date: 2025-04-26 Test Time: 07:15:11 Pat Name: JERO BATISTA Department: [facility] ED Patient ID: [facility]-[id number] Room: [address] [place] [address] A Gender: F Squirrel Man: gilbert : [id number] Requested By: KARY SAEED Order Number: [id number] Reading MD: Shabbir Muller Measurements Intervals [place] Rate: 77 P: 9 [place]: 178 QRS: -24 QRSD: 86 T: 30 QT: 394 QTc: 446 Interpretive Statements Sinus rhythm Left atrial enlargement Borderline left axis deviation Borderline ST elevation, lateral leads Electronically Signed On 05-01-2025 18:38:17 PDT by Shabbir Muller Please click the below link to view image of tracing.
== END 2025-04-26 13:15 | disposition left against medical advice (07) | DRG 605 ==
LOC: EDUNIT# 07:12 → ER 07:12 → EDBD 07:12 → OVERFLOW 11:30
PROVIDERS: ADMIT Internal Medicine; ATTEND Internal Medicine
DX: S40.012A Contusion of left shoulder, initial encounter (principal); G90.9 Disorder of the autonomic nervous system, unspecified; I10 Essential (primary) hypertension; Z79.899 Other long term (current) drug therapy; W06.XXXA Fall from bed, initial encounter; Y93.89 Activity, other specified; Y92.89 Other specified places as the place of occurrence of the external cause; Y99.8 Other external cause status; I95.1 Orthostatic hypotension
CPT/HCPCS: 36415; 70450; 73030; 80048; 85025; 93005; 99291; G0378